=== PATIENT | male | born 1970 | race African-American/Black ===

== ENCOUNTER 2022-04-26 12:48 | Inpatient (IN) | payer OTHER ==
[2022-04-26 14:15] VITALS: BMI 28.7
[2022-04-26] MEDS ORDERED: BENZOCAINE/MENTHOL (CHLORASEPTIC ) LOZENGE MM PRN (14:43)
[2022-04-26] MEDS ORDERED: DICYCLOMINE HCL 10 MG CAPSULE PO PRN (14:43)
[2022-04-26] MEDS ORDERED: MAGNESIUM HYDROX 2400MG/30ML ORAL SUSPENSION 30 ML CUP PO PRN (14:43)
[2022-04-26] MEDS ORDERED: NALOXONE HCL (KLOXXADO) 8 MG SPRAY NS PRN (14:43)
[2022-04-26] MEDS ORDERED: NICOTINE 10 MG CARTRIDGE (INHALER) IH PRN (14:43)
[2022-04-26] MEDS ORDERED: ONDANSETRON *ODT* 4 MG TABLET SL PRN (14:43)
[2022-04-26] MEDS ORDERED: LOPERAMIDE HCL 2 MG CAPSULE PO PRN (14:43)
[2022-04-26] MEDS ORDERED: MAG HYDROX/AL HYDROX/SIMETH 30 ML UNIT-DOSE CUP PO PRN (14:43)
[2022-04-26] MEDS ORDERED: IBUPROFEN 400 MG TABLET (FP) PO PRN (14:43)
[2022-04-26] MEDS ORDERED: chlordiazePOXIDE HCL 25 MG CAPSULE PO PRN (14:43)
[2022-04-26] MEDS ORDERED: METHOCARBAMOL 500 MG TABLET PO PRN (14:43)
[2022-04-26] MEDS ORDERED: BISMUTH SUBSALICYLATE 524 MG/30 ML PO PRN (14:43)
[2022-04-26] MEDS ORDERED: IBUPROFEN 600 MG TABLET (FP) PO PRN (14:43)
[2022-04-26] MEDS ORDERED: ACETAMINOPHEN 325 MG TABLET (FP) PO PRN ×2 (14:43)
[2022-04-26] MEDS ORDERED: MAGNESIUM CITRATE 300 ML BOTTLE PO PRN (14:43)
[2022-04-26] MEDS ORDERED: ALBUTEROL SO4 HFA INHALER IH PRN (14:45)
[2022-04-26] MEDS ORDERED: NICOTINE 21 MG/24 HOURS TOPICAL PATCH ONE (15:24)
[2022-04-26] MEDS ORDERED: HYDROCHLOROTHIAZIDE 12.5 MG CAPSULE (FP) ONE (15:24)
[2022-04-26] MEDS: NICOTINE 21 MG/24 HOURS TOPICAL PATCH TD SCH (15:29)
[2022-04-26] MEDS: HYDROCHLOROTHIAZIDE 25 MG TABLET (FP) PO SCH (15:29)
[2022-04-26] MEDS: PRENATAL VITAMINS W/ FOLIC ACID TABLET (FP) PO SCH (15:35)
[2022-04-26] MEDS: chlordiazePOXIDE HCL 25 MG CAPSULE PO SCH ×2 (17:49→22:19)
[2022-04-26] MEDS: hydrOXYzine PAMOATE 25 MG CAPSULE (FP) PO SCH ×2 (17:49→22:19)
[2022-04-26] MEDS: MELATONIN 5 MG TABLETS PO SCH (22:19)
[2022-04-26] MEDS: THIAMINE HCL 100 MG TABLET (FP) PO SCH (22:19)
[2022-04-27] MEDS: chlordiazePOXIDE HCL 25 MG CAPSULE PO SCH ×4 (06:36→22:36)
[2022-04-27] MEDS: hydrOXYzine PAMOATE 25 MG CAPSULE (FP) PO SCH ×5 (06:36→22:36)
[2022-04-27] MEDS: HYDROCHLOROTHIAZIDE 25 MG TABLET (FP) PO SCH (10:25)
[2022-04-27] MEDS: PRENATAL VITAMINS W/ FOLIC ACID TABLET (FP) PO SCH (10:26)
[2022-04-27] MEDS: NICOTINE 21 MG/24 HOURS TOPICAL PATCH TD SCH (10:27)
[2022-04-27 12:26] LABS: HEMATOCRIT 38.3 % (35.4-49); HEMOGLOBIN 12.1 GM/dL (11.7-16.9); MCH 25.6 pg (25.7-33.7); MCHC 31.6 g/dl (32.0-35.9); MEAN CELL VOLUME 80.9 fl (80-96); MEAN PLT VOLUME 9.6 fl (7.5-11.1); PLATELET COUNT 249 10^3/uL (134-434); RBC 4.74 M/mm3 (4.00-5.60); RDW 14.6 % (11.9-15.9); WHITE BLOOD COUNT 5.8 K/mm3 (4.0-10.0)
[2022-04-27 12:50] LABS: ALBUMIN 3.4 g/dl (3.4-5.0); CALCIUM 8.8 mg/dL (8.5-10.1)
[2022-04-27 12:51] LABS: BLOOD UREA NITROGEN 19.2 mg/dL (7-18); CREATININE 1.1 mg/dL (0.55-1.3)
[2022-04-27 12:52] LABS: TOT PROT 6.5 g/dl (6.4-8.2)
[2022-04-27 12:59] LABS: BILIRUBIN,TOTAL 0.7 mg/dL (0.2-1)
[2022-04-27] MEDS ORDERED: LACTULOSE 20 GM/30 ML UDC (FOR ORAL USE ONLY) PO PRN (13:54)
[2022-04-27] MEDS ORDERED: POTASSIUM CHLORIDE ORAL LIQUID 20 MEQ/15 ML PO ONE (13:54)
[2022-04-27] MEDS: MELATONIN 5 MG TABLETS PO SCH (22:35)
[2022-04-27] MEDS: THIAMINE HCL 100 MG TABLET (FP) PO SCH (22:36)
[2022-04-27] MEDS: QUEtiapine FUMARATE 100 MG TABLET (FP) PO SCH (22:36)
[2022-04-28] MEDS: hydrOXYzine PAMOATE 25 MG CAPSULE (FP) PO SCH ×5 (05:49→22:21)
[2022-04-28] MEDS: chlordiazePOXIDE HCL 25 MG CAPSULE PO SCH ×4 (05:50→22:22)
[2022-04-28] MEDS: PRENATAL VITAMINS W/ FOLIC ACID TABLET (FP) PO SCH (10:39)
[2022-04-28] MEDS: HYDROCHLOROTHIAZIDE 25 MG TABLET (FP) PO SCH (10:40)
[2022-04-28] MEDS: NICOTINE 21 MG/24 HOURS TOPICAL PATCH TD SCH (10:40)
[2022-04-28] MEDS ORDERED: PATIENT'S OWN MEDICATION (NON-FORMULARY) (Lisinopril [Lisinopril] 40 MG Tablet) PO SCH (12:30)
[2022-04-28] MEDS ORDERED: LISINOPRIL 20 MG TABLET PO SCH (12:45)
[2022-04-28] MEDS: LACTULOSE 20 GM/30 ML UDC (FOR ORAL USE ONLY) PO SCH ×4 (13:32→22:22)
[2022-04-28] MEDS: APIXABAN 5 MG TABLET PO SCH ×2 (13:37→22:21)
[2022-04-28] MEDS: NIFEdipine E.R 60 MG TABLET PO SCH (13:37)
[2022-04-28] MEDS: LISINOPRIL 20 MG TABLET PO SCH (15:11)
[2022-04-28] MEDS: QUEtiapine FUMARATE 100 MG TABLET (FP) PO SCH (22:21)
[2022-04-28] MEDS: THIAMINE HCL 100 MG TABLET (FP) PO SCH (22:21)
[2022-04-28] MEDS: MELATONIN 5 MG TABLETS PO SCH (22:21)
[2022-04-29] MEDS ORDERED: chlordiazePOXIDE HCL 10 MG CAPSULE PO PRN
[2022-04-29] MEDS: hydrOXYzine PAMOATE 25 MG CAPSULE (FP) PO SCH ×5 (05:46→22:11)
[2022-04-29] MEDS: chlordiazePOXIDE HCL 10 MG CAPSULE PO SCH ×2 (05:46→10:38)
[2022-04-29] MEDS: FLUTICASONE PROP 0.05% 16 GM NASAL SPRAY NS SCH (10:36)
[2022-04-29] MEDS: PRENATAL VITAMINS W/ FOLIC ACID TABLET (FP) PO SCH (10:36)
[2022-04-29] MEDS: LACTULOSE 20 GM/30 ML UDC (FOR ORAL USE ONLY) PO SCH ×4 (10:36→22:12)
[2022-04-29] MEDS: LISINOPRIL 20 MG TABLET PO SCH (10:37)
[2022-04-29] MEDS: NIFEdipine E.R 60 MG TABLET PO SCH (10:37)
[2022-04-29] MEDS: NICOTINE 21 MG/24 HOURS TOPICAL PATCH TD SCH (10:38)
[2022-04-29] MEDS: HYDROCHLOROTHIAZIDE 25 MG TABLET (FP) PO SCH (10:38)
[2022-04-29] MEDS: APIXABAN 5 MG TABLET PO SCH ×2 (10:38→22:12)
[2022-04-29] MEDS ORDERED: LORazepam 1 MG TABLET PO PRN (11:23)
[2022-04-29] MEDS: GABAPENTIN 300 MG CAPSULE PO SCH ×3 (11:55→22:12)
[2022-04-29] MEDS: PANTOPRAZOLE 40 MG TABLET PO SCH (11:55)
[2022-04-29] MEDS: LORazepam 1 MG TABLET PO SCH ×3 (11:55→22:40)
[2022-04-29] MEDS ORDERED: POTASSIUM CHLORIDE TABS 20 MEQ TABLET.ER (FP) PO ONE (12:00)
[2022-04-29] MEDS: MELATONIN 5 MG TABLETS PO SCH (22:11)
[2022-04-29] MEDS: THIAMINE HCL 100 MG TABLET (FP) PO SCH (22:11)
[2022-04-29] MEDS: QUEtiapine FUMARATE 100 MG TABLET (FP) PO SCH (22:12)
[2022-04-30] MEDS ORDERED: chlordiazePOXIDE HCL 10 MG CAPSULE PO SCH (05:00)
[2022-04-30] MEDS: LORazepam 0.5 MG TABLET PO SCH ×2 (06:12→10:08)
[2022-04-30] MEDS: GABAPENTIN 300 MG CAPSULE PO SCH ×2 (06:13→13:34)
[2022-04-30] MEDS: hydrOXYzine PAMOATE 25 MG CAPSULE (FP) PO SCH ×3 (06:13→13:34)
[2022-04-30] MEDS: LACTULOSE 20 GM/30 ML UDC (FOR ORAL USE ONLY) PO SCH ×2 (10:02→13:34)
[2022-04-30] MEDS: PANTOPRAZOLE 40 MG TABLET PO SCH (10:03)
[2022-04-30] MEDS: LISINOPRIL 20 MG TABLET PO SCH (10:03)
[2022-04-30] MEDS: PRENATAL VITAMINS W/ FOLIC ACID TABLET (FP) PO SCH (10:03)
[2022-04-30] MEDS: FLUTICASONE PROP 0.05% 16 GM NASAL SPRAY NS SCH (10:03)
[2022-04-30] MEDS: APIXABAN 5 MG TABLET PO SCH (10:03)
[2022-04-30] MEDS: HYDROCHLOROTHIAZIDE 25 MG TABLET (FP) PO SCH (10:03)
[2022-04-30] MEDS: NICOTINE 21 MG/24 HOURS TOPICAL PATCH TD SCH (10:03)
[2022-04-30] MEDS: NIFEdipine E.R 60 MG TABLET PO SCH (10:10)
[2022-04-30 13:20] VITALS: BP 117/69; PULSE 85; RESP 16; TEMP 98.3
[2022-05-01] MEDS ORDERED: LORazepam 0.5 MG TABLET PO ONE (05:00)
[2022-05-01] MEDS ORDERED: chlordiazePOXIDE HCL 10 MG CAPSULE PO ONE (05:00)
[2022-05-02] MEDS ORDERED: LORazepam 0.5 MG TABLET PO PRN
== END 2022-04-30 13:42 | disposition home or self-care (01) | DRG 774 ==
LOC: YASAS 12:48 → Y3N 15:15
PROVIDERS: ADMIT Allergy & Immunology; ATTEND Surgery
PROC: HZ2ZZZZ Detoxification Services for Substance Abuse Treatment (ICD-10-PCS; principal; 2022-04-26)
DX: F10.230 Alcohol dependence with withdrawal, uncomplicated (principal); F14.20 Cocaine dependence, uncomplicated; F17.210 Nicotine dependence, cigarettes, uncomplicated; F20.9 Schizophrenia, unspecified; F31.9 Bipolar disorder, unspecified; E72.20 Disorder of urea cycle metabolism, unspecified; E87.6 Hypokalemia; I10 Essential (primary) hypertension; M54.50 Low back pain, unspecified; G89.29 Other chronic pain; R79.89 Other specified abnormal findings of blood chemistry; R74.01 Elevation of levels of liver transaminase levels; Z59.02 Unsheltered homelessness; Z56.0 Unemployment, unspecified
CPT/HCPCS: 36415; 71046-TC-FY; 80053; 82140; 84132; 85027; 86780; C9803-CS; U0003; U0005

== ENCOUNTER 2022-07-09 15:50 | Inpatient (IN) | payer OTHER ==
[2022-07-09 17:15] VITALS: BMI 30.8
[2022-07-09] MEDS ORDERED: ONDANSETRON *ODT* 4 MG TABLET SL PRN (17:49)
[2022-07-09] MEDS ORDERED: BENZOCAINE/MENTHOL (CHLORASEPTIC ) LOZENGE MM PRN (17:49)
[2022-07-09] MEDS ORDERED: MAG HYDROX/AL HYDROX/SIMETH 30 ML UNIT-DOSE CUP PO PRN (17:49)
[2022-07-09] MEDS ORDERED: NALOXONE HCL (KLOXXADO) 8 MG SPRAY NS PRN (17:49)
[2022-07-09] MEDS ORDERED: LOPERAMIDE HCL 2 MG CAPSULE PO PRN (17:49)
[2022-07-09] MEDS ORDERED: IBUPROFEN 400 MG TABLET (FP) PO PRN (17:49)
[2022-07-09] MEDS ORDERED: LORazepam 1 MG TABLET PO PRN (17:49)
[2022-07-09] MEDS ORDERED: MAGNESIUM HYDROX 2400MG/30ML ORAL SUSPENSION 30 ML CUP PO PRN (17:49)
[2022-07-09] MEDS ORDERED: POLYETHYLENE GLYCOL (HEALTHYLAX) 3350 17 GM PACKET PO PRN (17:49)
[2022-07-09] MEDS ORDERED: DICYCLOMINE HCL 10 MG CAPSULE PO PRN (17:49)
[2022-07-09] MEDS ORDERED: NICOTINE POLACRILEX 2 MG GUM BUC PRN (17:49)
[2022-07-09] MEDS ORDERED: hydrOXYzine PAMOATE 25 MG CAPSULE (FP) PO PRN (17:49)
[2022-07-09] MEDS ORDERED: ACETAMINOPHEN 325 MG TABLET (FP) PO PRN ×2 (17:49)
[2022-07-09] MEDS ORDERED: BISMUTH SUBSALICYLATE 524 MG/30 ML PO PRN (17:49)
[2022-07-09] MEDS ORDERED: IBUPROFEN 600 MG TABLET (FP) PO PRN (17:49)
[2022-07-09] MEDS ORDERED: LORazepam 1 MG TABLET ONE (18:53)
[2022-07-09] MEDS: THIAMINE HCL 100 MG TABLET (FP) PO SCH (22:25)
[2022-07-09] MEDS: MELATONIN 5 MG TABLETS PO SCH (22:25)
[2022-07-09] MEDS: LORazepam 2 MG TABLET PO SCH (22:25)
[2022-07-10] MEDS: LORazepam 2 MG TABLET PO SCH ×4 (05:28→22:02)
[2022-07-10] MEDS: NICOTINE 7 MG/24 HOURS TOPICAL PATCH TD SCH (10:28)
[2022-07-10] MEDS: PRENATAL VITAMINS W/ FOLIC ACID TABLET (FP) PO SCH (10:28)
[2022-07-10] MEDS ORDERED: DOCUSATE SODIUM 100 MG CAPSULE (FP) PO PRN (10:33)
[2022-07-10] MEDS ORDERED: APIXABAN 5 MG TABLET PO SCH (10:45)
[2022-07-10 11:12] LABS: HEMATOCRIT 37.1 % (35.4-49); HEMOGLOBIN 11.6 GM/dL (11.7-16.9); MCH 24.5 pg (25.7-33.7); MCHC 31.4 g/dl (32.0-35.9); MEAN PLT VOLUME 8.8 fl (7.5-11.1); PLATELET COUNT 296 10^3/uL (134-434); RBC 4.75 M/mm3 (4.00-5.60); RDW 15.3 % (11.9-15.9); WHITE BLOOD COUNT 3.9 K/mm3 (4.0-10.0)
[2022-07-10 12:16] LABS: ALBUMIN 3.5 g/dl (3.4-5.0)
[2022-07-10 12:19] LABS: CREATININE 1.3 mg/dL (0.55-1.3)
[2022-07-10 12:21] LABS: BILIRUBIN,TOTAL 0.4 mg/dL (0.2-1); TOT PROT 6.6 g/dl (6.4-8.2)
[2022-07-10] MEDS: HYDROCHLOROTHIAZIDE 25 MG TABLET (FP) PO SCH (12:46)
[2022-07-10] MEDS: NIFEdipine E.R 60 MG TABLET PO SCH (12:47)
[2022-07-10] MEDS: APIXABAN 5 MG TABLET PO SCH ×2 (14:04→22:02)
[2022-07-10] MEDS ORDERED: cloNIDine HCL 0.1 MG TABLET PO ONE (21:09)
[2022-07-10] MEDS: MELATONIN 5 MG TABLETS PO SCH (21:23)
[2022-07-10] MEDS: THIAMINE HCL 100 MG TABLET (FP) PO SCH (21:23)
[2022-07-10] MEDS ORDERED: QUEtiapine FUMARATE 100 MG TABLET (FP) PO SCH (22:00)
[2022-07-10] MEDS ORDERED: QUEtiapine FUMARATE 200 MG TABLET PO SCH (22:00)
[2022-07-11] MEDS: LORazepam 1 MG TABLET PO SCH ×4 (05:36→22:15)
[2022-07-11] MEDS: METHOCARBAMOL 500 MG TABLET PO PRN ×2 (05:40→22:16)
[2022-07-11] MEDS: HYDROCHLOROTHIAZIDE 25 MG TABLET (FP) PO SCH (09:23)
[2022-07-11] MEDS: LISINOPRIL 20 MG TABLET PO SCH (09:23)
[2022-07-11] MEDS: LABETALOL HCL 100 MG TABLET (FP) PO SCH ×2 (09:23→22:15)
[2022-07-11] MEDS: NIFEdipine E.R 60 MG TABLET PO SCH (09:23)
[2022-07-11] MEDS: NICOTINE 7 MG/24 HOURS TOPICAL PATCH TD SCH (09:25)
[2022-07-11] MEDS: PRENATAL VITAMINS W/ FOLIC ACID TABLET (FP) PO SCH (09:25)
[2022-07-11] MEDS ORDERED: SERTRALINE HCL 50 MG TABLET (FP) PO SCH (10:00)
[2022-07-11] MEDS ORDERED: QUEtiapine FUMARATE 200 MG TABLET PO SCH (22:00)
[2022-07-11] MEDS: THIAMINE HCL 100 MG TABLET (FP) PO SCH (22:15)
[2022-07-11] MEDS: MELATONIN 5 MG TABLETS PO SCH (22:15)
[2022-07-12] MEDS ORDERED: LORazepam 0.5 MG TABLET PO PRN
[2022-07-12] MEDS: LORazepam 0.5 MG TABLET PO SCH ×2 (05:40→10:07)
[2022-07-12 06:10] VITALS: TEMP 96.9
[2022-07-12 09:01] VITALS: BP 136/80; PULSE 71; RESP 18
[2022-07-12] MEDS ORDERED: SERTRALINE HCL 50 MG TABLET (FP) PO SCH (10:00)
[2022-07-12] MEDS: LABETALOL HCL 100 MG TABLET (FP) PO SCH (10:05)
[2022-07-12] MEDS: NICOTINE 7 MG/24 HOURS TOPICAL PATCH TD SCH (10:05)
[2022-07-12] MEDS: PRENATAL VITAMINS W/ FOLIC ACID TABLET (FP) PO SCH (10:05)
[2022-07-12] MEDS: HYDROCHLOROTHIAZIDE 25 MG TABLET (FP) PO SCH (10:05)
[2022-07-12] MEDS: LISINOPRIL 20 MG TABLET PO SCH (10:05)
[2022-07-12] MEDS: NIFEdipine E.R 60 MG TABLET PO SCH (10:06)
[2022-07-13] MEDS ORDERED: LORazepam 0.5 MG TABLET PO ONE (05:00)
== END 2022-07-12 13:18 | disposition home or self-care (01) | DRG 775 ==
LOC: YASAS 15:50 → Y3N 18:48
PROVIDERS: ADMIT Allergy & Immunology; ATTEND Surgery
PROC: HZ2ZZZZ Detoxification Services for Substance Abuse Treatment (ICD-10-PCS; principal; 2022-07-09)
DX: F10.230 Alcohol dependence with withdrawal, uncomplicated (principal); F17.210 Nicotine dependence, cigarettes, uncomplicated; F19.24 Other psychoactive substance dependence with psychoactive substance-induced mood disorder; I10 Essential (primary) hypertension; G47.00 Insomnia, unspecified; Z86.59 Personal history of other mental and behavioral disorders; Z91.013 Allergy to seafood; Z98.84 Bariatric surgery status; Z56.0 Unemployment, unspecified; Z59.00 Homelessness unspecified
CPT/HCPCS: 36415; 80053; 85027; 86780; 87811; C9803-CS; U0003; U0005

== ENCOUNTER 2022-09-04 18:51 | Inpatient (IN) | payer OTHER ==
[2022-09-04 19:59] VITALS: BMI 33.0
[2022-09-05] MEDS ORDERED: chlordiazePOXIDE HCL 25 MG CAPSULE PO PRN (01:04)
[2022-09-05] MEDS ORDERED: IBUPROFEN 600 MG TABLET (FP) PO PRN (01:04)
[2022-09-05] MEDS ORDERED: LOPERAMIDE HCL 2 MG CAPSULE PO PRN (01:04)
[2022-09-05] MEDS ORDERED: ACETAMINOPHEN 325 MG TABLET (FP) PO PRN ×2 (01:04)
[2022-09-05] MEDS ORDERED: ONDANSETRON *ODT* 4 MG TABLET SL PRN (01:04)
[2022-09-05] MEDS ORDERED: MAGNESIUM HYDROX 2400MG/30ML ORAL SUSPENSION 30 ML CUP PO PRN (01:04)
[2022-09-05] MEDS ORDERED: DICYCLOMINE HCL 10 MG CAPSULE PO PRN (01:04)
[2022-09-05] MEDS ORDERED: BISMUTH SUBSALICYLATE 524 MG/30 ML PO PRN (01:04)
[2022-09-05] MEDS ORDERED: IBUPROFEN 400 MG TABLET (FP) PO PRN (01:04)
[2022-09-05] MEDS ORDERED: BENZOCAINE/MENTHOL (CHLORASEPTIC ) LOZENGE MM PRN (01:04)
[2022-09-05] MEDS ORDERED: MAG HYDROX/AL HYDROX/SIMETH 30 ML UNIT-DOSE CUP PO PRN (01:04)
[2022-09-05] MEDS ORDERED: POLYETHYLENE GLYCOL (HEALTHYLAX) 3350 17 GM PACKET PO PRN (01:04)
[2022-09-05] MEDS ORDERED: NICOTINE 10 MG CARTRIDGE (INHALER) IH PRN (01:04)
[2022-09-05] MEDS ORDERED: NALOXONE HCL (KLOXXADO) 8 MG SPRAY NS PRN (01:04)
[2022-09-05] MEDS ORDERED: cloNIDine HCL 0.1 MG TABLET PO ONE (01:09)
[2022-09-05] MEDS ORDERED: IBUPROFEN 400 MG TABLET (FP) PO ONE (01:35)
[2022-09-05] MEDS ORDERED: cloNIDine HCL 0.1 MG TABLET ONE (01:35)
[2022-09-05] MEDS ORDERED: MELATONIN 5 MG TABLETS ONE (01:42)
[2022-09-05] MEDS ORDERED: chlordiazePOXIDE HCL 25 MG CAPSULE PO ONE (01:57)
[2022-09-05] MEDS: chlordiazePOXIDE HCL 25 MG CAPSULE PO SCH ×4 (06:08→22:36)
[2022-09-05] MEDS ORDERED: NICOTINE 14 MG/24 HOURS TOPICAL PATCH TD ONE (09:58)
[2022-09-05] MEDS ORDERED: HYDROCHLOROTHIAZIDE 12.5 MG CAPSULE (FP) ONE (09:59)
[2022-09-05] MEDS ORDERED: LISINOPRIL 10 MG TABLET ONE (09:59)
[2022-09-05] MEDS ORDERED: PRENATAL VITAMINS W/ FOLIC ACID TABLET (FP) PO ONE (09:59)
[2022-09-05] MEDS ORDERED: ERGOCALCIFEROL (VIT D2) 50,000 UNIT (1.25 MG) CAPSULE PO SCH (10:00)
[2022-09-05] MEDS ORDERED: NIFEdipine E.R 60 MG TABLET PO SCH (10:00)
[2022-09-05] MEDS: NICOTINE 14 MG/24 HOURS TOPICAL PATCH TD SCH (10:07)
[2022-09-05] MEDS: HYDROCHLOROTHIAZIDE 25 MG TABLET (FP) PO SCH (10:07)
[2022-09-05] MEDS: PRENATAL VITAMINS W/ FOLIC ACID TABLET (FP) PO SCH (10:07)
[2022-09-05] MEDS: LISINOPRIL 20 MG TABLET PO SCH (10:08)
[2022-09-05] MEDS: PANTOPRAZOLE 40 MG TABLET PO SCH (13:48)
[2022-09-05] MEDS ORDERED: chlordiazePOXIDE HCL 25 MG CAPSULE ONE (13:50)
[2022-09-05] MEDS: GABAPENTIN 300 MG CAPSULE PO SCH ×2 (14:14→22:34)
[2022-09-05] MEDS ORDERED: PANTOPRAZOLE 40 MG TABLET PO ONE (17:21)
[2022-09-05] MEDS: NIFEdipine E.R. 30 MG TABLET PO SCH (18:39)
[2022-09-05] MEDS: METOPROLOL TARTRATE 50 MG TABLET (FP) PO SCH (21:15)
[2022-09-05] MEDS: MELATONIN 5 MG TABLETS PO SCH (22:34)
[2022-09-05] MEDS: QUEtiapine FUMARATE 200 MG TABLET PO SCH (22:34)
[2022-09-05] MEDS: THIAMINE HCL 100 MG TABLET (FP) PO SCH (22:34)
[2022-09-05] MEDS: METHOCARBAMOL 500 MG TABLET PO PRN (22:36)
[2022-09-05] MEDS ORDERED: METOPROLOL TARTRATE 25 MG TABLET (FP) PO ONE (22:55)
[2022-09-06] MEDS: chlordiazePOXIDE HCL 25 MG CAPSULE PO SCH ×4 (06:08→22:20)
[2022-09-06] MEDS: GABAPENTIN 300 MG CAPSULE PO SCH ×3 (06:08→22:19)
[2022-09-06] MEDS: METOPROLOL TARTRATE 50 MG TABLET (FP) PO SCH ×2 (10:37→22:19)
[2022-09-06] MEDS: PRENATAL VITAMINS W/ FOLIC ACID TABLET (FP) PO SCH (10:37)
[2022-09-06] MEDS: HYDROCHLOROTHIAZIDE 25 MG TABLET (FP) PO SCH (10:38)
[2022-09-06] MEDS: LISINOPRIL 20 MG TABLET PO SCH (10:38)
[2022-09-06] MEDS: SERTRALINE HCL 50 MG TABLET (FP) PO SCH (10:38)
[2022-09-06] MEDS: PANTOPRAZOLE 40 MG TABLET PO SCH (10:38)
[2022-09-06] MEDS: NIFEdipine E.R. 30 MG TABLET PO SCH (10:38)
[2022-09-06] MEDS: NICOTINE 14 MG/24 HOURS TOPICAL PATCH TD SCH (10:39)
[2022-09-06] MEDS: METHOCARBAMOL 500 MG TABLET PO PRN (10:44)
[2022-09-06 13:50] LABS: HEMATOCRIT 32.5 % (35.4-49); HEMOGLOBIN 10.9 GM/dL (11.7-16.9); MCH 26.7 pg (25.7-33.7); MCHC 33.4 g/dl (32.0-35.9); MEAN CELL VOLUME 79.9 fl (80-96); MEAN PLT VOLUME 8.3 fl (7.5-11.1); PLATELET COUNT 249 10^3/uL (134-434); RBC 4.07 M/mm3 (4.00-5.60); RDW 18.4 % (11.9-15.9); WHITE BLOOD COUNT 4.2 K/mm3 (4.0-10.0)
[2022-09-06 14:47] LABS: CALCIUM 8.7 mg/dL (8.5-10.1)
[2022-09-06 14:48] LABS: ALBUMIN 3.3 g/dl (3.4-5.0)
[2022-09-06 14:50] LABS: CREATININE 1.1 mg/dL (0.55-1.3)
[2022-09-06 14:52] LABS: BILIRUBIN,TOTAL 0.2 mg/dL (0.2-1); TOT PROT 6.4 g/dl (6.4-8.2)
[2022-09-06] MEDS: QUEtiapine FUMARATE 200 MG TABLET PO SCH (22:19)
[2022-09-06] MEDS: MELATONIN 5 MG TABLETS PO SCH (22:20)
[2022-09-06] MEDS: THIAMINE HCL 100 MG TABLET (FP) PO SCH (22:20)
[2022-09-07] MEDS ORDERED: chlordiazePOXIDE HCL 10 MG CAPSULE PO PRN
[2022-09-07] MEDS: GABAPENTIN 300 MG CAPSULE PO SCH ×3 (05:52→21:59)
[2022-09-07] MEDS: chlordiazePOXIDE HCL 10 MG CAPSULE PO SCH ×4 (05:52→21:59)
[2022-09-07] MEDS: PRENATAL VITAMINS W/ FOLIC ACID TABLET (FP) PO SCH (10:23)
[2022-09-07] MEDS: METOPROLOL TARTRATE 50 MG TABLET (FP) PO SCH ×2 (10:23→21:58)
[2022-09-07] MEDS: SERTRALINE HCL 50 MG TABLET (FP) PO SCH (10:23)
[2022-09-07] MEDS: NIFEdipine E.R. 30 MG TABLET PO SCH (10:23)
[2022-09-07] MEDS: HYDROCHLOROTHIAZIDE 25 MG TABLET (FP) PO SCH (10:23)
[2022-09-07] MEDS: PANTOPRAZOLE 40 MG TABLET PO SCH (10:24)
[2022-09-07] MEDS: LISINOPRIL 20 MG TABLET PO SCH (10:24)
[2022-09-07] MEDS: NICOTINE 14 MG/24 HOURS TOPICAL PATCH TD SCH (10:24)
[2022-09-07] MEDS: VITAMINS A AND D TOPICAL OINTMENT 60 GM TUBE TP SCH ×2 (17:36→23:21)
[2022-09-07] MEDS: QUEtiapine FUMARATE 200 MG TABLET PO SCH (21:58)
[2022-09-07] MEDS: THIAMINE HCL 100 MG TABLET (FP) PO SCH (21:59)
[2022-09-07] MEDS: MELATONIN 5 MG TABLETS PO SCH (21:59)
[2022-09-07] MEDS: METHOCARBAMOL 500 MG TABLET PO PRN (22:01)
[2022-09-08] MEDS: VITAMINS A AND D TOPICAL OINTMENT 60 GM TUBE TP SCH ×4 (06:23→23:24)
[2022-09-08] MEDS: chlordiazePOXIDE HCL 10 MG CAPSULE PO SCH ×2 (06:23→17:07)
[2022-09-08] MEDS: GABAPENTIN 300 MG CAPSULE PO SCH ×3 (06:23→21:08)
[2022-09-08] MEDS: PRENATAL VITAMINS W/ FOLIC ACID TABLET (FP) PO SCH (10:36)
[2022-09-08] MEDS: NICOTINE 14 MG/24 HOURS TOPICAL PATCH TD SCH (10:36)
[2022-09-08] MEDS: SERTRALINE HCL 50 MG TABLET (FP) PO SCH (10:37)
[2022-09-08] MEDS: LISINOPRIL 20 MG TABLET PO SCH (10:38)
[2022-09-08] MEDS: METOPROLOL TARTRATE 50 MG TABLET (FP) PO SCH ×2 (10:39→21:08)
[2022-09-08] MEDS: PANTOPRAZOLE 40 MG TABLET PO SCH (10:39)
[2022-09-08] MEDS: NIFEdipine E.R. 30 MG TABLET PO SCH (10:39)
[2022-09-08] MEDS: METHOCARBAMOL 500 MG TABLET PO PRN ×2 (10:43→17:06)
[2022-09-08] MEDS: HYDROCHLOROTHIAZIDE 25 MG TABLET (FP) PO SCH (10:47)
[2022-09-08 19:44] VITALS: RESP 18
[2022-09-08] MEDS: MELATONIN 5 MG TABLETS PO SCH (21:08)
[2022-09-08] MEDS: QUEtiapine FUMARATE 200 MG TABLET PO SCH (21:08)
[2022-09-08] MEDS: THIAMINE HCL 100 MG TABLET (FP) PO SCH (21:08)
[2022-09-09] MEDS ORDERED: chlordiazePOXIDE HCL 10 MG CAPSULE PO ONE (05:00)
[2022-09-09] MEDS: GABAPENTIN 300 MG CAPSULE PO SCH (06:06)
[2022-09-09] MEDS: VITAMINS A AND D TOPICAL OINTMENT 60 GM TUBE TP SCH (06:31)
[2022-09-09 07:11] VITALS: TEMP 97.3
[2022-09-09 10:12] VITALS: BP 163/93; PULSE 87
[2022-09-09] MEDS: HYDROCHLOROTHIAZIDE 25 MG TABLET (FP) PO SCH (10:35)
[2022-09-09] MEDS: SERTRALINE HCL 50 MG TABLET (FP) PO SCH (10:35)
[2022-09-09] MEDS: NIFEdipine E.R. 30 MG TABLET PO SCH (10:35)
[2022-09-09] MEDS: PANTOPRAZOLE 40 MG TABLET PO SCH (10:35)
[2022-09-09] MEDS: METOPROLOL TARTRATE 50 MG TABLET (FP) PO SCH (10:35)
[2022-09-09] MEDS: PRENATAL VITAMINS W/ FOLIC ACID TABLET (FP) PO SCH (10:35)
[2022-09-09] MEDS: LISINOPRIL 20 MG TABLET PO SCH (10:36)
[2022-09-09] MEDS: NICOTINE 14 MG/24 HOURS TOPICAL PATCH TD SCH (10:37)
== END 2022-09-09 11:14 | disposition other institution (70) | DRG 775 ==
LOC: YASAS 18:51 → Y3N 09-05 13:54
PROVIDERS: ADMIT Allergy & Immunology; ATTEND Surgery
PROC: HZ2ZZZZ Detoxification Services for Substance Abuse Treatment (ICD-10-PCS; principal; 2022-09-05)
DX: F10.230 Alcohol dependence with withdrawal, uncomplicated (principal); F12.20 Cannabis dependence, uncomplicated; F17.210 Nicotine dependence, cigarettes, uncomplicated; F19.24 Other psychoactive substance dependence with psychoactive substance-induced mood disorder; F20.9 Schizophrenia, unspecified; F41.9 Anxiety disorder, unspecified; F32.A Depression, unspecified; M17.0 Bilateral primary osteoarthritis of knee; R76.11 Nonspecific reaction to tuberculin skin test without active tuberculosis; E66.9 Obesity, unspecified; Z68.33 Body mass index [BMI] 33.0-33.9, adult; Z59.00 Homelessness unspecified; Z56.0 Unemployment, unspecified
CPT/HCPCS: 36415; 80053; 82962; 85027; 86780; 93005; 93010; C9803-CS; U0003; U0005

== ENCOUNTER 2022-09-09 11:22 | Inpatient (IN) | payer OTHER ==
[2022-09-09] MEDS ORDERED: guaiFENesin 200 MG/10 ML 10 ML UNIT-DOSE CUPS PO PRN (12:51)
[2022-09-09] MEDS ORDERED: BENZOCAINE/MENTHOL (CHLORASEPTIC ) LOZENGE MM PRN (12:51)
[2022-09-09] MEDS ORDERED: MAGNESIUM HYDROX 2400MG/30ML ORAL SUSPENSION 30 ML CUP PO PRN (12:51)
[2022-09-09] MEDS ORDERED: LOPERAMIDE HCL 2 MG CAPSULE PO PRN (12:51)
[2022-09-09] MEDS ORDERED: POLYETHYLENE GLYCOL (HEALTHYLAX) 3350 17 GM PACKET PO PRN (12:51)
[2022-09-09] MEDS ORDERED: NICOTINE 10 MG CARTRIDGE (INHALER) IH PRN (12:51)
[2022-09-09] MEDS ORDERED: MAG HYDROX/AL HYDROX/SIMETH 30 ML UNIT-DOSE CUP PO PRN (12:51)
[2022-09-09] MEDS ORDERED: DOCUSATE SODIUM 100 MG CAPSULE (FP) PO PRN (12:54)
[2022-09-09] MEDS: GABAPENTIN 300 MG CAPSULE PO SCH ×2 (14:40→21:16)
[2022-09-09] MEDS: QUEtiapine FUMARATE 200 MG TABLET PO SCH (21:16)
[2022-09-09] MEDS: THIAMINE HCL 100 MG TABLET (FP) PO SCH (21:16)
[2022-09-09] MEDS ORDERED: MELATONIN 5 MG TABLETS PO SCH (22:00)
[2022-09-10] MEDS: GABAPENTIN 300 MG CAPSULE PO SCH ×3 (06:49→21:16)
[2022-09-10] MEDS ORDERED: SERTRALINE HCL 50 MG TABLET (FP) PO SCH ×2 (10:00)
[2022-09-10] MEDS: PRENATAL VITAMINS W/ FOLIC ACID TABLET (FP) PO SCH (10:20)
[2022-09-10] MEDS: HYDROCHLOROTHIAZIDE 25 MG TABLET (FP) PO SCH (10:21)
[2022-09-10] MEDS: NIFEdipine E.R. 30 MG TABLET PO SCH (10:21)
[2022-09-10] MEDS: metoPROLOL SUCCINATE 25 MG TAB.SR.24H (FP) PO SCH (10:21)
[2022-09-10] MEDS: NICOTINE 14 MG/24 HOURS TOPICAL PATCH TD SCH (10:21)
[2022-09-10] MEDS: THIAMINE HCL 100 MG TABLET (FP) PO SCH (21:15)
[2022-09-10] MEDS: QUEtiapine FUMARATE 200 MG TABLET PO SCH (21:15)
[2022-09-10] MEDS: hydrOXYzine PAMOATE 25 MG CAPSULE (FP) PO PRN (21:16)
[2022-09-10] MEDS: P-EPHED 60MG/TRIPROLIDI 2.5MG TABLET PO PRN (21:18)
[2022-09-11] MEDS: GABAPENTIN 300 MG CAPSULE PO SCH (06:10)
[2022-09-11] MEDS ORDERED: SERTRALINE 100 MG PO SCH (10:00)
[2022-09-11] MEDS: metoPROLOL SUCCINATE 25 MG TAB.SR.24H (FP) PO SCH (10:22)
[2022-09-11] MEDS: HYDROCHLOROTHIAZIDE 25 MG TABLET (FP) PO SCH (10:22)
[2022-09-11] MEDS: NICOTINE 14 MG/24 HOURS TOPICAL PATCH TD SCH (10:22)
[2022-09-11] MEDS: PRENATAL VITAMINS W/ FOLIC ACID TABLET (FP) PO SCH (10:22)
[2022-09-11] MEDS: NIFEdipine E.R. 30 MG TABLET PO SCH (10:23)
[2022-09-11] MEDS: SERTRALINE 100 MG PO SCH (11:08)
[2022-09-11] MEDS: GABAPENTIN 300 MG PO SCH ×2 (13:55→21:31)
[2022-09-11] MEDS: FLUTICASONE PROP 0.05% 16 GM NASAL SPRAY NS SCH (13:56)
[2022-09-11] MEDS: THIAMINE HCL 100 MG TABLET (FP) PO SCH (21:30)
[2022-09-11] MEDS: QUEtiapine FUMARATE 200 MG TABLET PO SCH (21:31)
[2022-09-11] MEDS: hydrOXYzine PAMOATE 25 MG CAPSULE (FP) PO PRN (21:31)
[2022-09-12] MEDS: GABAPENTIN 300 MG PO SCH ×2 (06:00→13:40)
[2022-09-12] MEDS: PRENATAL VITAMINS W/ FOLIC ACID TABLET (FP) PO SCH (10:07)
[2022-09-12] MEDS: metoPROLOL SUCCINATE 25 MG TAB.SR.24H (FP) PO SCH (10:07)
[2022-09-12] MEDS: HYDROCHLOROTHIAZIDE 25 MG TABLET (FP) PO SCH (10:07)
[2022-09-12] MEDS: FLUTICASONE PROP 0.05% 16 GM NASAL SPRAY NS SCH (10:07)
[2022-09-12] MEDS: NIFEdipine E.R. 30 MG TABLET PO SCH (10:07)
[2022-09-12] MEDS: NICOTINE 14 MG/24 HOURS TOPICAL PATCH TD SCH (10:08)
[2022-09-12] MEDS: SERTRALINE 100 MG PO SCH (10:08)
[2022-09-12] MEDS: METHOCARBAMOL 500 MG TABLET PO PRN ×2 (10:10→21:23)
[2022-09-12] MEDS ORDERED: LIDOCAINE 5% TOPICAL PATCH TP SCH (15:45)
[2022-09-12] MEDS: FERROUS SO4 325 MG TABLET (FP) PO SCH (16:42)
[2022-09-12] MEDS: LIDOCAINE 5% TOPICAL PATCH TP SCH (16:43)
[2022-09-12] MEDS: QUEtiapine FUMARATE 200 MG TABLET PO SCH (21:23)
[2022-09-12] MEDS: THIAMINE HCL 100 MG TABLET (FP) PO SCH (21:24)
[2022-09-12] MEDS: GABAPENTIN 300 MG CAPSULE PO SCH (21:24)
[2022-09-12] MEDS: hydrOXYzine PAMOATE 25 MG CAPSULE (FP) PO PRN (21:25)
[2022-09-12] MEDS: METHYL SALICYLATE/MENTHOL OINT 30 GM TUBE TP SCH (21:25)
[2022-09-12] MEDS: LIDOCAINE PATCH REMOVAL MC SCH ×2 (21:25)
[2022-09-13] MEDS: metoPROLOL SUCCINATE 25 MG TAB.SR.24H (FP) PO SCH (09:10)
[2022-09-13] MEDS: NIFEdipine E.R. 30 MG TABLET PO SCH (09:10)
[2022-09-13] MEDS: GABAPENTIN 300 MG CAPSULE PO SCH ×3 (09:10→21:53)
[2022-09-13] MEDS: PANTOPRAZOLE 40 MG TABLET PO SCH (09:10)
[2022-09-13] MEDS: HYDROCHLOROTHIAZIDE 25 MG TABLET (FP) PO SCH (09:10)
[2022-09-13] MEDS: FERROUS SO4 325 MG TABLET (FP) PO SCH ×3 (09:11→21:53)
[2022-09-13] MEDS: SERTRALINE 100 MG PO SCH (09:12)
[2022-09-13] MEDS: FLUTICASONE PROP 0.05% 16 GM NASAL SPRAY NS SCH (09:12)
[2022-09-13] MEDS: P-EPHED 60MG/TRIPROLIDI 2.5MG TABLET PO PRN ×2 (09:13→16:46)
[2022-09-13] MEDS: NICOTINE 14 MG/24 HOURS TOPICAL PATCH TD SCH (09:15)
[2022-09-13] MEDS: LIDOCAINE 5% TOPICAL PATCH TP SCH (09:15)
[2022-09-13] MEDS: PRENATAL VITAMINS W/ FOLIC ACID TABLET (FP) PO SCH (10:00)
[2022-09-13] MEDS: THIAMINE HCL 100 MG TABLET (FP) PO SCH (21:53)
[2022-09-13] MEDS: QUEtiapine FUMARATE 200 MG TABLET PO SCH (21:53)
[2022-09-13] MEDS: METHYL SALICYLATE/MENTHOL OINT 30 GM TUBE TP SCH (21:54)
[2022-09-13] MEDS: LIDOCAINE PATCH REMOVAL MC SCH ×2 (21:54→21:55)
[2022-09-13] MEDS: METHOCARBAMOL 500 MG TABLET PO PRN (21:54)
[2022-09-14] MEDS: PANTOPRAZOLE 40 MG TABLET PO SCH (09:57)
[2022-09-14] MEDS: PRENATAL VITAMINS W/ FOLIC ACID TABLET (FP) PO SCH (09:57)
[2022-09-14] MEDS: HYDROCHLOROTHIAZIDE 25 MG TABLET (FP) PO SCH (09:57)
[2022-09-14] MEDS: GABAPENTIN 300 MG CAPSULE PO SCH ×3 (09:57→21:22)
[2022-09-14] MEDS: LISINOPRIL 20 MG TABLET PO SCH (09:57)
[2022-09-14] MEDS: METHOCARBAMOL 500 MG TABLET PO PRN (09:58)
[2022-09-14] MEDS: metoPROLOL SUCCINATE 25 MG TAB.SR.24H (FP) PO SCH (09:58)
[2022-09-14] MEDS: SERTRALINE 100 MG PO SCH (09:59)
[2022-09-14] MEDS: FLUTICASONE PROP 0.05% 16 GM NASAL SPRAY NS SCH (10:00)
[2022-09-14] MEDS: FERROUS SO4 325 MG TABLET (FP) PO SCH ×2 (10:00→21:22)
[2022-09-14] MEDS: NICOTINE 14 MG/24 HOURS TOPICAL PATCH TD SCH (10:00)
[2022-09-14] MEDS: LIDOCAINE 5% TOPICAL PATCH TP SCH (10:01)
[2022-09-14] MEDS: NIFEdipine E.R 60 MG TABLET PO SCH (10:02)
[2022-09-14] MEDS: P-EPHED 60MG/TRIPROLIDI 2.5MG TABLET PO PRN (15:00)
[2022-09-14] MEDS: THIAMINE HCL 100 MG TABLET (FP) PO SCH (21:22)
[2022-09-14] MEDS: LIDOCAINE PATCH REMOVAL MC SCH ×2 (21:23)
[2022-09-14] MEDS: METHYL SALICYLATE/MENTHOL OINT 30 GM TUBE TP SCH (21:23)
[2022-09-14] MEDS: QUEtiapine FUMARATE 200 MG TABLET PO SCH (22:35)
[2022-09-15] MEDS: FLUTICASONE PROP 0.05% 16 GM NASAL SPRAY NS SCH (10:01)
[2022-09-15] MEDS: LISINOPRIL 20 MG TABLET PO SCH (10:01)
[2022-09-15] MEDS: PRENATAL VITAMINS W/ FOLIC ACID TABLET (FP) PO SCH (10:01)
[2022-09-15] MEDS: GABAPENTIN 300 MG CAPSULE PO SCH ×3 (10:01→21:24)
[2022-09-15] MEDS: FERROUS SO4 325 MG TABLET (FP) PO SCH ×2 (10:02→21:24)
[2022-09-15] MEDS: NIFEdipine E.R 60 MG TABLET PO SCH (10:02)
[2022-09-15] MEDS: metoPROLOL SUCCINATE 25 MG TAB.SR.24H (FP) PO SCH (10:02)
[2022-09-15] MEDS: NICOTINE 14 MG/24 HOURS TOPICAL PATCH TD SCH (10:02)
[2022-09-15] MEDS: HYDROCHLOROTHIAZIDE 25 MG TABLET (FP) PO SCH (10:02)
[2022-09-15] MEDS: PANTOPRAZOLE 40 MG TABLET PO SCH (10:02)
[2022-09-15] MEDS: LIDOCAINE 5% TOPICAL PATCH TP SCH (10:05)
[2022-09-15] MEDS ORDERED: SERTRALINE HCL 50 MG TABLET (FP) PO SCH (10:11)
[2022-09-15] MEDS: SERTRALINE HCL 50 MG TABLET (FP) PO SCH (10:43)
[2022-09-15] MEDS: METHOCARBAMOL 500 MG TABLET PO PRN (10:44)
[2022-09-15] MEDS: SERTRALINE 100 MG PO SCH (10:57)
[2022-09-15] MEDS: THIAMINE HCL 100 MG TABLET (FP) PO SCH (21:24)
[2022-09-15] MEDS: METHYL SALICYLATE/MENTHOL OINT 30 GM TUBE TP SCH (21:25)
[2022-09-15] MEDS: LIDOCAINE PATCH REMOVAL MC SCH ×2 (21:25)
[2022-09-15] MEDS: SUVOREXANT 10 MG TABLET PO PRN (22:04)
[2022-09-15] MEDS: QUEtiapine FUMARATE 200 MG TABLET PO SCH (22:04)
[2022-09-16] MEDS: PRENATAL VITAMINS W/ FOLIC ACID TABLET (FP) PO SCH (09:47)
[2022-09-16] MEDS: NICOTINE 14 MG/24 HOURS TOPICAL PATCH TD SCH (09:47)
[2022-09-16] MEDS: FLUTICASONE PROP 0.05% 16 GM NASAL SPRAY NS SCH (09:47)
[2022-09-16] MEDS: metoPROLOL SUCCINATE 25 MG TAB.SR.24H (FP) PO SCH (09:47)
[2022-09-16] MEDS: NIFEdipine E.R 60 MG TABLET PO SCH (09:48)
[2022-09-16] MEDS: HYDROCHLOROTHIAZIDE 25 MG TABLET (FP) PO SCH (09:48)
[2022-09-16] MEDS: LISINOPRIL 20 MG TABLET PO SCH (09:48)
[2022-09-16] MEDS: LIDOCAINE 5% TOPICAL PATCH TP SCH (09:48)
[2022-09-16] MEDS: SERTRALINE HCL 50 MG TABLET (FP) PO SCH (09:48)
[2022-09-16] MEDS: GABAPENTIN 300 MG CAPSULE PO SCH ×3 (09:48→21:14)
[2022-09-16] MEDS: FERROUS SO4 325 MG TABLET (FP) PO SCH ×2 (09:48→21:14)
[2022-09-16] MEDS: PANTOPRAZOLE 40 MG TABLET PO SCH (09:48)
[2022-09-16] MEDS: METHOCARBAMOL 500 MG TABLET PO PRN (09:49)
[2022-09-16] MEDS: THIAMINE HCL 100 MG TABLET (FP) PO SCH (21:14)
[2022-09-16] MEDS: METHYL SALICYLATE/MENTHOL OINT 30 GM TUBE TP SCH (21:15)
[2022-09-16] MEDS: LIDOCAINE PATCH REMOVAL MC SCH ×2 (21:15)
[2022-09-16] MEDS: QUEtiapine FUMARATE 200 MG TABLET PO SCH (22:03)
[2022-09-16] MEDS: SUVOREXANT 10 MG TABLET PO PRN (22:03)
[2022-09-17] MEDS: PANTOPRAZOLE 40 MG TABLET PO SCH (09:51)
[2022-09-17] MEDS: NIFEdipine E.R 60 MG TABLET PO SCH (09:51)
[2022-09-17] MEDS: HYDROCHLOROTHIAZIDE 25 MG TABLET (FP) PO SCH (09:51)
[2022-09-17] MEDS: PRENATAL VITAMINS W/ FOLIC ACID TABLET (FP) PO SCH (09:51)
[2022-09-17] MEDS: LISINOPRIL 20 MG TABLET PO SCH (09:52)
[2022-09-17] MEDS: GABAPENTIN 300 MG CAPSULE PO SCH ×3 (09:52→21:22)
[2022-09-17] MEDS: metoPROLOL SUCCINATE 25 MG TAB.SR.24H (FP) PO SCH (09:52)
[2022-09-17] MEDS: FERROUS SO4 325 MG TABLET (FP) PO SCH ×2 (09:52→21:22)
[2022-09-17] MEDS: SERTRALINE HCL 50 MG TABLET (FP) PO SCH (09:52)
[2022-09-17] MEDS: FLUTICASONE PROP 0.05% 16 GM NASAL SPRAY NS SCH (09:52)
[2022-09-17] MEDS: LIDOCAINE 5% TOPICAL PATCH TP SCH (09:53)
[2022-09-17] MEDS: NICOTINE 14 MG/24 HOURS TOPICAL PATCH TD SCH (09:53)
[2022-09-17] MEDS: METHOCARBAMOL 500 MG TABLET PO PRN (13:57)
[2022-09-17] MEDS: THIAMINE HCL 100 MG TABLET (FP) PO SCH (21:22)
[2022-09-17] MEDS: METHYL SALICYLATE/MENTHOL OINT 30 GM TUBE TP SCH (21:23)
[2022-09-17] MEDS: LIDOCAINE PATCH REMOVAL MC SCH ×2 (21:23)
[2022-09-17] MEDS: QUEtiapine FUMARATE 200 MG TABLET PO SCH (22:05)
[2022-09-17] MEDS: SUVOREXANT 10 MG TABLET PO PRN (22:05)
[2022-09-18] MEDS: PANTOPRAZOLE 40 MG TABLET PO SCH (10:03)
[2022-09-18] MEDS: NIFEdipine E.R 60 MG TABLET PO SCH (10:03)
[2022-09-18] MEDS: NICOTINE 14 MG/24 HOURS TOPICAL PATCH TD SCH (10:03)
[2022-09-18] MEDS: HYDROCHLOROTHIAZIDE 25 MG TABLET (FP) PO SCH (10:03)
[2022-09-18] MEDS: GABAPENTIN 300 MG CAPSULE PO SCH ×3 (10:03→22:01)
[2022-09-18] MEDS: FERROUS SO4 325 MG TABLET (FP) PO SCH ×2 (10:03→22:01)
[2022-09-18] MEDS: FLUTICASONE PROP 0.05% 16 GM NASAL SPRAY NS SCH (10:03)
[2022-09-18] MEDS: metoPROLOL SUCCINATE 25 MG TAB.SR.24H (FP) PO SCH (10:03)
[2022-09-18] MEDS: SERTRALINE HCL 50 MG TABLET (FP) PO SCH (10:03)
[2022-09-18] MEDS: LISINOPRIL 20 MG TABLET PO SCH (10:03)
[2022-09-18] MEDS: PRENATAL VITAMINS W/ FOLIC ACID TABLET (FP) PO SCH (10:03)
[2022-09-18] MEDS: LIDOCAINE 5% TOPICAL PATCH TP SCH (10:03)
[2022-09-18] MEDS: METHOCARBAMOL 500 MG TABLET PO PRN ×2 (10:04→22:02)
[2022-09-18] MEDS: QUEtiapine FUMARATE 200 MG TABLET PO SCH (22:01)
[2022-09-18] MEDS: THIAMINE HCL 100 MG TABLET (FP) PO SCH (22:01)
[2022-09-18] MEDS: LIDOCAINE PATCH REMOVAL MC SCH ×2 (22:02→22:03)
[2022-09-18] MEDS: METHYL SALICYLATE/MENTHOL OINT 30 GM TUBE TP SCH (22:03)
[2022-09-18] MEDS: P-EPHED 60MG/TRIPROLIDI 2.5MG TABLET PO PRN (22:03)
[2022-09-19] MEDS: FERROUS SO4 325 MG TABLET (FP) PO SCH ×2 (09:53→21:20)
[2022-09-19] MEDS: PRENATAL VITAMINS W/ FOLIC ACID TABLET (FP) PO SCH (09:53)
[2022-09-19] MEDS: LISINOPRIL 20 MG TABLET PO SCH (09:54)
[2022-09-19] MEDS: GABAPENTIN 300 MG CAPSULE PO SCH ×3 (09:54→21:20)
[2022-09-19] MEDS: NIFEdipine E.R 60 MG TABLET PO SCH (09:54)
[2022-09-19] MEDS: metoPROLOL SUCCINATE 25 MG TAB.SR.24H (FP) PO SCH (09:54)
[2022-09-19] MEDS: HYDROCHLOROTHIAZIDE 25 MG TABLET (FP) PO SCH (09:54)
[2022-09-19] MEDS: SERTRALINE HCL 50 MG TABLET (FP) PO SCH (09:54)
[2022-09-19] MEDS: PANTOPRAZOLE 40 MG TABLET PO SCH (09:54)
[2022-09-19] MEDS: LIDOCAINE 5% TOPICAL PATCH TP SCH (09:55)
[2022-09-19] MEDS: FLUTICASONE PROP 0.05% 16 GM NASAL SPRAY NS SCH (09:55)
[2022-09-19] MEDS: NICOTINE 14 MG/24 HOURS TOPICAL PATCH TD SCH (09:55)
[2022-09-19] MEDS: METHOCARBAMOL 500 MG TABLET PO PRN ×2 (09:56→21:21)
[2022-09-19] MEDS: THIAMINE HCL 100 MG TABLET (FP) PO SCH (21:21)
[2022-09-19] MEDS: LIDOCAINE PATCH REMOVAL MC SCH ×2 (21:21)
[2022-09-19] MEDS: METHYL SALICYLATE/MENTHOL OINT 30 GM TUBE TP SCH (21:21)
[2022-09-19] MEDS: SUVOREXANT 10 MG TABLET PO PRN (22:20)
[2022-09-19] MEDS: QUEtiapine FUMARATE 200 MG TABLET PO SCH (22:20)
[2022-09-20] MEDS: GABAPENTIN 300 MG CAPSULE PO SCH ×3 (10:33→21:17)
[2022-09-20] MEDS: PRENATAL VITAMINS W/ FOLIC ACID TABLET (FP) PO SCH (10:33)
[2022-09-20] MEDS: LISINOPRIL 20 MG TABLET PO SCH (10:34)
[2022-09-20] MEDS: PANTOPRAZOLE 40 MG TABLET PO SCH (10:34)
[2022-09-20] MEDS: SERTRALINE HCL 50 MG TABLET (FP) PO SCH (10:35)
[2022-09-20] MEDS: FLUTICASONE PROP 0.05% 16 GM NASAL SPRAY NS SCH (10:35)
[2022-09-20] MEDS: FERROUS SO4 325 MG TABLET (FP) PO SCH ×2 (10:35→21:17)
[2022-09-20] MEDS: metoPROLOL SUCCINATE 25 MG TAB.SR.24H (FP) PO SCH (10:36)
[2022-09-20] MEDS: HYDROCHLOROTHIAZIDE 25 MG TABLET (FP) PO SCH (10:36)
[2022-09-20] MEDS: LIDOCAINE 5% TOPICAL PATCH TP SCH (10:37)
[2022-09-20] MEDS: NICOTINE 14 MG/24 HOURS TOPICAL PATCH TD SCH (10:37)
[2022-09-20] MEDS: NIFEdipine E.R 60 MG TABLET PO SCH (10:59)
[2022-09-20] MEDS: THIAMINE HCL 100 MG TABLET (FP) PO SCH (21:17)
[2022-09-20] MEDS: LIDOCAINE PATCH REMOVAL MC SCH ×2 (21:17→21:18)
[2022-09-20] MEDS: METHYL SALICYLATE/MENTHOL OINT 30 GM TUBE TP SCH (21:17)
[2022-09-20] MEDS: SUVOREXANT 10 MG TABLET PO PRN (22:30)
[2022-09-20] MEDS: QUEtiapine FUMARATE 200 MG TABLET PO SCH (22:30)
[2022-09-21] MEDS: PRENATAL VITAMINS W/ FOLIC ACID TABLET (FP) PO SCH (10:02)
[2022-09-21] MEDS: SERTRALINE HCL 50 MG TABLET (FP) PO SCH (10:03)
[2022-09-21] MEDS: metoPROLOL SUCCINATE 25 MG TAB.SR.24H (FP) PO SCH (10:03)
[2022-09-21] MEDS: LISINOPRIL 20 MG TABLET PO SCH (10:03)
[2022-09-21] MEDS: FERROUS SO4 325 MG TABLET (FP) PO SCH ×2 (10:04→21:38)
[2022-09-21] MEDS: NIFEdipine E.R 60 MG TABLET PO SCH (10:04)
[2022-09-21] MEDS: PANTOPRAZOLE 40 MG TABLET PO SCH (10:04)
[2022-09-21] MEDS: GABAPENTIN 300 MG CAPSULE PO SCH ×3 (10:04→21:38)
[2022-09-21] MEDS: HYDROCHLOROTHIAZIDE 25 MG TABLET (FP) PO SCH (10:04)
[2022-09-21] MEDS: FLUTICASONE PROP 0.05% 16 GM NASAL SPRAY NS SCH (10:05)
[2022-09-21] MEDS: LIDOCAINE 5% TOPICAL PATCH TP SCH (10:05)
[2022-09-21] MEDS: NICOTINE 14 MG/24 HOURS TOPICAL PATCH TD SCH (10:06)
[2022-09-21] MEDS: QUEtiapine FUMARATE 200 MG TABLET PO SCH (21:38)
[2022-09-21] MEDS: METHYL SALICYLATE/MENTHOL OINT 30 GM TUBE TP SCH (21:38)
[2022-09-21] MEDS: THIAMINE HCL 100 MG TABLET (FP) PO SCH (21:38)
[2022-09-21] MEDS: LIDOCAINE PATCH REMOVAL MC SCH ×2 (21:38→21:39)
[2022-09-21] MEDS: SUVOREXANT 10 MG TABLET PO PRN (21:40)
[2022-09-21] MEDS: METHOCARBAMOL 500 MG TABLET PO PRN (21:40)
[2022-09-22] MEDS: GABAPENTIN 300 MG CAPSULE PO SCH ×3 (10:16→21:57)
[2022-09-22] MEDS: NIFEdipine E.R 60 MG TABLET PO SCH (10:16)
[2022-09-22] MEDS: PRENATAL VITAMINS W/ FOLIC ACID TABLET (FP) PO SCH (10:16)
[2022-09-22] MEDS: PANTOPRAZOLE 40 MG TABLET PO SCH (10:16)
[2022-09-22] MEDS: metoPROLOL SUCCINATE 25 MG TAB.SR.24H (FP) PO SCH (10:16)
[2022-09-22] MEDS: SERTRALINE HCL 50 MG TABLET (FP) PO SCH (10:16)
[2022-09-22] MEDS: HYDROCHLOROTHIAZIDE 25 MG TABLET (FP) PO SCH (10:17)
[2022-09-22] MEDS: LIDOCAINE 5% TOPICAL PATCH TP SCH (10:17)
[2022-09-22] MEDS: FERROUS SO4 325 MG TABLET (FP) PO SCH ×2 (10:17→21:58)
[2022-09-22] MEDS: FLUTICASONE PROP 0.05% 16 GM NASAL SPRAY NS SCH (10:17)
[2022-09-22] MEDS: LISINOPRIL 20 MG TABLET PO SCH (10:17)
[2022-09-22] MEDS: NICOTINE 14 MG/24 HOURS TOPICAL PATCH TD SCH (10:18)
[2022-09-22] MEDS: METHYL SALICYLATE/MENTHOL OINT 30 GM TUBE TP SCH (21:57)
[2022-09-22] MEDS: LIDOCAINE PATCH REMOVAL MC SCH ×2 (21:57→21:58)
[2022-09-22] MEDS: QUEtiapine FUMARATE 200 MG TABLET PO SCH (21:58)
[2022-09-22] MEDS: METHOCARBAMOL 500 MG TABLET PO PRN (21:58)
[2022-09-22] MEDS: THIAMINE HCL 100 MG TABLET (FP) PO SCH (21:59)
[2022-09-22] MEDS: SUVOREXANT 10 MG TABLET PO PRN (21:59)
[2022-09-23] MEDS: PANTOPRAZOLE 40 MG TABLET PO SCH (10:21)
[2022-09-23] MEDS: SERTRALINE HCL 50 MG TABLET (FP) PO SCH (10:21)
[2022-09-23] MEDS: GABAPENTIN 300 MG CAPSULE PO SCH ×3 (10:21→21:48)
[2022-09-23] MEDS: metoPROLOL SUCCINATE 25 MG TAB.SR.24H (FP) PO SCH (10:21)
[2022-09-23] MEDS: NIFEdipine E.R 60 MG TABLET PO SCH (10:21)
[2022-09-23] MEDS: PRENATAL VITAMINS W/ FOLIC ACID TABLET (FP) PO SCH (10:21)
[2022-09-23] MEDS: LISINOPRIL 20 MG TABLET PO SCH (10:21)
[2022-09-23] MEDS: HYDROCHLOROTHIAZIDE 25 MG TABLET (FP) PO SCH (10:21)
[2022-09-23] MEDS: FLUTICASONE PROP 0.05% 16 GM NASAL SPRAY NS SCH (10:21)
[2022-09-23] MEDS: FERROUS SO4 325 MG TABLET (FP) PO SCH ×2 (10:21→21:47)
[2022-09-23] MEDS: NICOTINE 14 MG/24 HOURS TOPICAL PATCH TD SCH (10:21)
[2022-09-23] MEDS: METHOCARBAMOL 500 MG TABLET PO PRN ×2 (10:22→21:48)
[2022-09-23] MEDS: LIDOCAINE 5% TOPICAL PATCH TP SCH (10:22)
[2022-09-23] MEDS: ACETAMINOPHEN 325 MG TABLET (FP) PO PRN ×3 (10:22→21:48)
[2022-09-23] MEDS: SUVOREXANT 10 MG TABLET PO PRN (21:47)
[2022-09-23] MEDS: QUEtiapine FUMARATE 200 MG TABLET PO SCH (21:48)
[2022-09-23] MEDS: THIAMINE HCL 100 MG TABLET (FP) PO SCH (21:48)
[2022-09-23] MEDS: METHYL SALICYLATE/MENTHOL OINT 30 GM TUBE TP SCH (21:50)
[2022-09-23] MEDS: LIDOCAINE PATCH REMOVAL MC SCH ×2 (21:50)
[2022-09-24] MEDS: metoPROLOL SUCCINATE 25 MG TAB.SR.24H (FP) PO SCH (10:00)
[2022-09-24] MEDS: PRENATAL VITAMINS W/ FOLIC ACID TABLET (FP) PO SCH (10:00)
[2022-09-24] MEDS: FLUTICASONE PROP 0.05% 16 GM NASAL SPRAY NS SCH (10:00)
[2022-09-24] MEDS: PANTOPRAZOLE 40 MG TABLET PO SCH (10:00)
[2022-09-24] MEDS: GABAPENTIN 300 MG CAPSULE PO SCH ×3 (10:00→21:21)
[2022-09-24] MEDS: LISINOPRIL 20 MG TABLET PO SCH (10:00)
[2022-09-24] MEDS: HYDROCHLOROTHIAZIDE 25 MG TABLET (FP) PO SCH (10:01)
[2022-09-24] MEDS: SERTRALINE HCL 50 MG TABLET (FP) PO SCH (10:01)
[2022-09-24] MEDS: FERROUS SO4 325 MG TABLET (FP) PO SCH ×2 (10:01→21:22)
[2022-09-24] MEDS: NICOTINE 14 MG/24 HOURS TOPICAL PATCH TD SCH (10:01)
[2022-09-24] MEDS: LIDOCAINE 5% TOPICAL PATCH TP SCH (10:01)
[2022-09-24] MEDS: NIFEdipine E.R 60 MG TABLET PO SCH (10:01)
[2022-09-24] MEDS: ACETAMINOPHEN 325 MG TABLET (FP) PO PRN ×4 (10:02→21:37)
[2022-09-24] MEDS: METHOCARBAMOL 500 MG TABLET PO PRN ×2 (10:02→21:22)
[2022-09-24] MEDS: QUEtiapine FUMARATE 200 MG TABLET PO SCH (21:21)
[2022-09-24] MEDS: THIAMINE HCL 100 MG TABLET (FP) PO SCH (21:21)
[2022-09-24] MEDS: SUVOREXANT 10 MG TABLET PO PRN (21:23)
[2022-09-24] MEDS: LIDOCAINE PATCH REMOVAL MC SCH ×2 (21:24→21:25)
[2022-09-24] MEDS: METHYL SALICYLATE/MENTHOL OINT 30 GM TUBE TP SCH (21:24)
[2022-09-24] MEDS ORDERED: SUVOREXANT 10 MG TABLET PO PRN (22:00)
[2022-09-25] MEDS: FLUTICASONE PROP 0.05% 16 GM NASAL SPRAY NS SCH (10:05)
[2022-09-25] MEDS: metoPROLOL SUCCINATE 25 MG TAB.SR.24H (FP) PO SCH (10:06)
[2022-09-25] MEDS: NIFEdipine E.R 60 MG TABLET PO SCH (10:06)
[2022-09-25] MEDS: GABAPENTIN 300 MG CAPSULE PO SCH ×3 (10:06→21:39)
[2022-09-25] MEDS: FERROUS SO4 325 MG TABLET (FP) PO SCH ×2 (10:06→21:39)
[2022-09-25] MEDS: PRENATAL VITAMINS W/ FOLIC ACID TABLET (FP) PO SCH (10:06)
[2022-09-25] MEDS: LISINOPRIL 20 MG TABLET PO SCH (10:07)
[2022-09-25] MEDS: PANTOPRAZOLE 40 MG TABLET PO SCH (10:07)
[2022-09-25] MEDS: SERTRALINE HCL 50 MG TABLET (FP) PO SCH (10:07)
[2022-09-25] MEDS: HYDROCHLOROTHIAZIDE 25 MG TABLET (FP) PO SCH (10:07)
[2022-09-25] MEDS: ACETAMINOPHEN 325 MG TABLET (FP) PO PRN (10:08)
[2022-09-25] MEDS: LIDOCAINE 5% TOPICAL PATCH TP SCH (11:52)
[2022-09-25] MEDS: NICOTINE 14 MG/24 HOURS TOPICAL PATCH TD SCH (11:52)
[2022-09-25] MEDS: IBUPROFEN 400 MG TABLET (FP) PO PRN (14:34)
[2022-09-25] MEDS: AMOX TR/POT CLAV 500MG/125MG TABLETS (FP) PO SCH (16:48)
[2022-09-25] MEDS: QUEtiapine FUMARATE 200 MG TABLET PO SCH (21:39)
[2022-09-25] MEDS: LIDOCAINE PATCH REMOVAL MC SCH ×2 (21:39)
[2022-09-25] MEDS: METHYL SALICYLATE/MENTHOL OINT 30 GM TUBE TP SCH (21:39)
[2022-09-25] MEDS: METHOCARBAMOL 500 MG TABLET PO PRN (21:39)
[2022-09-25] MEDS: THIAMINE HCL 100 MG TABLET (FP) PO SCH (21:39)
[2022-09-25] MEDS: SUVOREXANT 10 MG TABLET PO PRN (21:40)
[2022-09-26] MEDS: IBUPROFEN 400 MG TABLET (FP) PO PRN ×2 (05:50→13:18)
[2022-09-26] MEDS: AMOX TR/POT CLAV 500MG/125MG TABLETS (FP) PO SCH ×2 (07:09→16:37)
[2022-09-26] MEDS ORDERED: BENZOCAINE 20 % GEL TUBE MM PRN (09:12)
[2022-09-26] MEDS: PANTOPRAZOLE 40 MG TABLET PO SCH (10:19)
[2022-09-26] MEDS: metoPROLOL SUCCINATE 25 MG TAB.SR.24H (FP) PO SCH (10:19)
[2022-09-26] MEDS: PRENATAL VITAMINS W/ FOLIC ACID TABLET (FP) PO SCH (10:19)
[2022-09-26] MEDS: LISINOPRIL 20 MG TABLET PO SCH (10:19)
[2022-09-26] MEDS: SERTRALINE HCL 50 MG TABLET (FP) PO SCH (10:19)
[2022-09-26] MEDS: FLUTICASONE PROP 0.05% 16 GM NASAL SPRAY NS SCH (10:19)
[2022-09-26] MEDS: NIFEdipine E.R 60 MG TABLET PO SCH (10:19)
[2022-09-26] MEDS: FERROUS SO4 325 MG TABLET (FP) PO SCH ×2 (10:19→21:20)
[2022-09-26] MEDS: HYDROCHLOROTHIAZIDE 25 MG TABLET (FP) PO SCH (10:19)
[2022-09-26] MEDS: LIDOCAINE 5% TOPICAL PATCH TP SCH (10:20)
[2022-09-26] MEDS: NICOTINE 14 MG/24 HOURS TOPICAL PATCH TD SCH (10:20)
[2022-09-26] MEDS: GABAPENTIN 300 MG CAPSULE PO SCH ×3 (10:20→21:20)
[2022-09-26] MEDS: ACETAMINOPHEN 325 MG TABLET (FP) PO PRN ×3 (10:21→21:22)
[2022-09-26] MEDS: METHOCARBAMOL 500 MG TABLET PO PRN ×2 (10:22→21:22)
[2022-09-26] MEDS: THIAMINE HCL 100 MG TABLET (FP) PO SCH (21:20)
[2022-09-26] MEDS: SUVOREXANT 15 MG TABLET PO PRN (21:22)
[2022-09-26] MEDS: LIDOCAINE PATCH REMOVAL MC SCH ×2 (22:17→22:18)
[2022-09-26] MEDS: METHYL SALICYLATE/MENTHOL OINT 30 GM TUBE TP SCH (22:17)
[2022-09-27] MEDS: hydrOXYzine PAMOATE 25 MG CAPSULE (FP) PO PRN (06:22)
[2022-09-27] MEDS: IBUPROFEN 400 MG TABLET (FP) PO PRN ×3 (06:22→21:21)
[2022-09-27] MEDS: AMOX TR/POT CLAV 500MG/125MG TABLETS (FP) PO SCH ×2 (07:08→16:43)
[2022-09-27] MEDS: SERTRALINE HCL 50 MG TABLET (FP) PO SCH (09:50)
[2022-09-27] MEDS: metoPROLOL SUCCINATE 25 MG TAB.SR.24H (FP) PO SCH (09:50)
[2022-09-27] MEDS: NIFEdipine E.R 60 MG TABLET PO SCH (09:50)
[2022-09-27] MEDS: FLUTICASONE PROP 0.05% 16 GM NASAL SPRAY NS SCH (09:50)
[2022-09-27] MEDS: LIDOCAINE 5% TOPICAL PATCH TP SCH (09:50)
[2022-09-27] MEDS: PRENATAL VITAMINS W/ FOLIC ACID TABLET (FP) PO SCH (09:50)
[2022-09-27] MEDS: LISINOPRIL 20 MG TABLET PO SCH (09:50)
[2022-09-27] MEDS: GABAPENTIN 300 MG CAPSULE PO SCH ×3 (09:50→21:20)
[2022-09-27] MEDS: HYDROCHLOROTHIAZIDE 25 MG TABLET (FP) PO SCH (09:50)
[2022-09-27] MEDS: FERROUS SO4 325 MG TABLET (FP) PO SCH ×2 (09:51→21:20)
[2022-09-27] MEDS: PANTOPRAZOLE 40 MG TABLET PO SCH (09:51)
[2022-09-27] MEDS: NICOTINE 14 MG/24 HOURS TOPICAL PATCH TD SCH (09:51)
[2022-09-27] MEDS: METHOCARBAMOL 500 MG TABLET PO PRN ×2 (09:51→21:20)
[2022-09-27] MEDS: ACETAMINOPHEN 325 MG TABLET (FP) PO PRN ×2 (09:52→16:44)
[2022-09-27] MEDS: ARIPiprazole 5 MG TABLET PO SCH (09:54)
[2022-09-27] MEDS: LIDOCAINE PATCH REMOVAL MC SCH ×2 (21:20)
[2022-09-27] MEDS: THIAMINE HCL 100 MG TABLET (FP) PO SCH (21:20)
[2022-09-27] MEDS: METHYL SALICYLATE/MENTHOL OINT 30 GM TUBE TP SCH (21:20)
[2022-09-27] MEDS: SUVOREXANT 15 MG TABLET PO PRN (21:21)
[2022-09-28] MEDS: IBUPROFEN 400 MG TABLET (FP) PO PRN ×2 (06:26→14:09)
[2022-09-28] MEDS: hydrOXYzine PAMOATE 25 MG CAPSULE (FP) PO PRN ×2 (06:27→21:22)
[2022-09-28] MEDS: AMOX TR/POT CLAV 500MG/125MG TABLETS (FP) PO SCH ×2 (07:01→17:55)
[2022-09-28] MEDS: PRENATAL VITAMINS W/ FOLIC ACID TABLET (FP) PO SCH (10:10)
[2022-09-28] MEDS: FLUTICASONE PROP 0.05% 16 GM NASAL SPRAY NS SCH (10:11)
[2022-09-28] MEDS: HYDROCHLOROTHIAZIDE 25 MG TABLET (FP) PO SCH (10:11)
[2022-09-28] MEDS: SERTRALINE HCL 50 MG TABLET (FP) PO SCH (10:11)
[2022-09-28] MEDS: FERROUS SO4 325 MG TABLET (FP) PO SCH ×2 (10:12→21:23)
[2022-09-28] MEDS: LISINOPRIL 20 MG TABLET PO SCH (10:12)
[2022-09-28] MEDS: PANTOPRAZOLE 40 MG TABLET PO SCH (10:12)
[2022-09-28] MEDS: ARIPiprazole 5 MG TABLET PO SCH (10:12)
[2022-09-28] MEDS: GABAPENTIN 300 MG CAPSULE PO SCH ×3 (10:13→21:23)
[2022-09-28] MEDS: NIFEdipine E.R 60 MG TABLET PO SCH (10:13)
[2022-09-28] MEDS: NICOTINE 14 MG/24 HOURS TOPICAL PATCH TD SCH (10:13)
[2022-09-28] MEDS: metoPROLOL SUCCINATE 25 MG TAB.SR.24H (FP) PO SCH (10:13)
[2022-09-28] MEDS: ACETAMINOPHEN 325 MG TABLET (FP) PO PRN ×2 (10:14→17:55)
[2022-09-28] MEDS: METHOCARBAMOL 500 MG TABLET PO PRN ×2 (10:15→21:23)
[2022-09-28] MEDS: LIDOCAINE 5% TOPICAL PATCH TP SCH (10:46)
[2022-09-28] MEDS: THIAMINE HCL 100 MG TABLET (FP) PO SCH (21:24)
[2022-09-28] MEDS: SUVOREXANT 15 MG TABLET PO PRN (21:24)
[2022-09-28] MEDS: LIDOCAINE PATCH REMOVAL MC SCH ×2 (21:25)
[2022-09-28] MEDS: METHYL SALICYLATE/MENTHOL OINT 30 GM TUBE TP SCH (21:25)
[2022-09-29] MEDS: IBUPROFEN 400 MG TABLET (FP) PO PRN ×3 (05:44→21:33)
[2022-09-29] MEDS: hydrOXYzine PAMOATE 25 MG CAPSULE (FP) PO PRN (05:45)
[2022-09-29] MEDS: AMOX TR/POT CLAV 500MG/125MG TABLETS (FP) PO SCH ×2 (07:06→17:09)
[2022-09-29] MEDS: FLUTICASONE PROP 0.05% 16 GM NASAL SPRAY NS SCH (10:20)
[2022-09-29] MEDS: PRENATAL VITAMINS W/ FOLIC ACID TABLET (FP) PO SCH (10:20)
[2022-09-29] MEDS: NICOTINE 14 MG/24 HOURS TOPICAL PATCH TD SCH (10:20)
[2022-09-29] MEDS: metoPROLOL SUCCINATE 25 MG TAB.SR.24H (FP) PO SCH (10:23)
[2022-09-29] MEDS: FERROUS SO4 325 MG TABLET (FP) PO SCH ×2 (10:24→21:31)
[2022-09-29] MEDS: LISINOPRIL 20 MG TABLET PO SCH (10:24)
[2022-09-29] MEDS: SERTRALINE HCL 50 MG TABLET (FP) PO SCH (10:24)
[2022-09-29] MEDS: HYDROCHLOROTHIAZIDE 25 MG TABLET (FP) PO SCH (10:24)
[2022-09-29] MEDS: NIFEdipine E.R 60 MG TABLET PO SCH (10:24)
[2022-09-29] MEDS: PANTOPRAZOLE 40 MG TABLET PO SCH (10:24)
[2022-09-29] MEDS: GABAPENTIN 300 MG CAPSULE PO SCH ×3 (10:24→21:31)
[2022-09-29] MEDS: METHOCARBAMOL 500 MG TABLET PO PRN ×2 (10:25→21:31)
[2022-09-29] MEDS: ACETAMINOPHEN 325 MG TABLET (FP) PO PRN ×2 (10:25→17:10)
[2022-09-29] MEDS: LIDOCAINE 5% TOPICAL PATCH TP SCH (10:27)
[2022-09-29] MEDS: ARIPiprazole 5 MG TABLET PO SCH (10:46)
[2022-09-29] MEDS: THIAMINE HCL 100 MG TABLET (FP) PO SCH (21:31)
[2022-09-29] MEDS: SUVOREXANT 15 MG TABLET PO PRN (21:32)
[2022-09-29] MEDS: METHYL SALICYLATE/MENTHOL OINT 30 GM TUBE TP SCH (21:33)
[2022-09-29] MEDS: LIDOCAINE PATCH REMOVAL MC SCH ×2 (21:33→21:34)
[2022-09-30] MEDS: hydrOXYzine PAMOATE 25 MG CAPSULE (FP) PO PRN (06:25)
[2022-09-30] MEDS: IBUPROFEN 400 MG TABLET (FP) PO PRN ×2 (06:25→16:45)
[2022-09-30] MEDS: AMOX TR/POT CLAV 500MG/125MG TABLETS (FP) PO SCH ×2 (07:04→16:44)
[2022-09-30] MEDS: PANTOPRAZOLE 40 MG TABLET PO SCH (10:22)
[2022-09-30] MEDS: metoPROLOL SUCCINATE 25 MG TAB.SR.24H (FP) PO SCH (10:22)
[2022-09-30] MEDS: ARIPiprazole 5 MG TABLET PO SCH (10:22)
[2022-09-30] MEDS: LISINOPRIL 20 MG TABLET PO SCH (10:22)
[2022-09-30] MEDS: NIFEdipine E.R 60 MG TABLET PO SCH (10:22)
[2022-09-30] MEDS: FERROUS SO4 325 MG TABLET (FP) PO SCH ×2 (10:22→21:18)
[2022-09-30] MEDS: GABAPENTIN 300 MG CAPSULE PO SCH ×3 (10:22→21:16)
[2022-09-30] MEDS: SERTRALINE HCL 50 MG TABLET (FP) PO SCH (10:22)
[2022-09-30] MEDS: FLUTICASONE PROP 0.05% 16 GM NASAL SPRAY NS SCH (10:22)
[2022-09-30] MEDS: HYDROCHLOROTHIAZIDE 25 MG TABLET (FP) PO SCH (10:22)
[2022-09-30] MEDS: METHOCARBAMOL 500 MG TABLET PO PRN ×2 (10:23→21:16)
[2022-09-30] MEDS: ACETAMINOPHEN 325 MG TABLET (FP) PO PRN ×3 (10:23→21:19)
[2022-09-30] MEDS: LIDOCAINE 5% TOPICAL PATCH TP SCH (10:24)
[2022-09-30] MEDS: NICOTINE 14 MG/24 HOURS TOPICAL PATCH TD SCH (10:24)
[2022-09-30] MEDS: PRENATAL VITAMINS W/ FOLIC ACID TABLET (FP) PO SCH (10:24)
[2022-09-30] MEDS: THIAMINE HCL 100 MG TABLET (FP) PO SCH (21:16)
[2022-09-30] MEDS: SUVOREXANT 5 MG TABLET PO PRN (21:18)
[2022-09-30] MEDS: LIDOCAINE PATCH REMOVAL MC SCH ×2 (21:20)
[2022-09-30] MEDS: METHYL SALICYLATE/MENTHOL OINT 30 GM TUBE TP SCH (21:20)
[2022-10-01] MEDS: IBUPROFEN 400 MG TABLET (FP) PO PRN ×3 (05:39→21:54)
[2022-10-01] MEDS: hydrOXYzine PAMOATE 25 MG CAPSULE (FP) PO PRN (05:40)
[2022-10-01] MEDS: AMOX TR/POT CLAV 500MG/125MG TABLETS (FP) PO SCH ×2 (07:29→17:08)
[2022-10-01 08:55] VITALS: RESP 18
[2022-10-01] MEDS: ARIPiprazole 5 MG TABLET PO SCH (09:33)
[2022-10-01] MEDS: PRENATAL VITAMINS W/ FOLIC ACID TABLET (FP) PO SCH (09:33)
[2022-10-01] MEDS: SERTRALINE HCL 50 MG TABLET (FP) PO SCH (09:34)
[2022-10-01] MEDS: NIFEdipine E.R 60 MG TABLET PO SCH (09:34)
[2022-10-01] MEDS: GABAPENTIN 300 MG CAPSULE PO SCH ×3 (09:34→21:52)
[2022-10-01] MEDS: LISINOPRIL 20 MG TABLET PO SCH (09:35)
[2022-10-01] MEDS: metoPROLOL SUCCINATE 25 MG TAB.SR.24H (FP) PO SCH (09:35)
[2022-10-01] MEDS: HYDROCHLOROTHIAZIDE 25 MG TABLET (FP) PO SCH (09:35)
[2022-10-01] MEDS: PANTOPRAZOLE 40 MG TABLET PO SCH (09:36)
[2022-10-01] MEDS: FLUTICASONE PROP 0.05% 16 GM NASAL SPRAY NS SCH (09:36)
[2022-10-01] MEDS: FERROUS SO4 325 MG TABLET (FP) PO SCH ×2 (09:36→21:53)
[2022-10-01] MEDS: METHOCARBAMOL 500 MG TABLET PO PRN ×2 (09:39→21:52)
[2022-10-01] MEDS: ACETAMINOPHEN 325 MG TABLET (FP) PO PRN (10:21)
[2022-10-01] MEDS: NICOTINE 14 MG/24 HOURS TOPICAL PATCH TD SCH (10:23)
[2022-10-01] MEDS: LIDOCAINE 5% TOPICAL PATCH TP SCH (10:23)
[2022-10-01] MEDS: METHYL SALICYLATE/MENTHOL OINT 30 GM TUBE TP SCH (21:53)
[2022-10-01] MEDS: SUVOREXANT 5 MG TABLET PO PRN (21:53)
[2022-10-01] MEDS: THIAMINE HCL 100 MG TABLET (FP) PO SCH (21:53)
[2022-10-01] MEDS: LIDOCAINE PATCH REMOVAL MC SCH ×2 (21:56→21:57)
[2022-10-02] MEDS: IBUPROFEN 400 MG TABLET (FP) PO PRN (06:52)
[2022-10-02 06:56] VITALS: TEMP 97.7
[2022-10-02] MEDS: AMOX TR/POT CLAV 500MG/125MG TABLETS (FP) PO SCH (07:26)
[2022-10-02 09:09] VITALS: BP 119/73; PULSE 78
[2022-10-02] MEDS: PRENATAL VITAMINS W/ FOLIC ACID TABLET (FP) PO SCH (09:24)
[2022-10-02] MEDS: PANTOPRAZOLE 40 MG TABLET PO SCH (09:25)
[2022-10-02] MEDS: NIFEdipine E.R 60 MG TABLET PO SCH (09:25)
[2022-10-02] MEDS: SERTRALINE HCL 50 MG TABLET (FP) PO SCH (09:25)
[2022-10-02] MEDS: HYDROCHLOROTHIAZIDE 25 MG TABLET (FP) PO SCH (09:26)
[2022-10-02] MEDS: LISINOPRIL 20 MG TABLET PO SCH (09:26)
[2022-10-02] MEDS: metoPROLOL SUCCINATE 25 MG TAB.SR.24H (FP) PO SCH (09:26)
[2022-10-02] MEDS: ARIPiprazole 5 MG TABLET PO SCH (09:26)
[2022-10-02] MEDS: FERROUS SO4 325 MG TABLET (FP) PO SCH (09:27)
[2022-10-02] MEDS: ACETAMINOPHEN 325 MG TABLET (FP) PO PRN (09:28)
[2022-10-02] MEDS: FLUTICASONE PROP 0.05% 16 GM NASAL SPRAY NS SCH (09:28)
[2022-10-02] MEDS: GABAPENTIN 300 MG CAPSULE PO SCH (09:30)
[2022-10-02] MEDS: LIDOCAINE 5% TOPICAL PATCH TP SCH (09:30)
[2022-10-02] MEDS: NICOTINE 14 MG/24 HOURS TOPICAL PATCH TD SCH (09:30)
== END 2022-10-02 09:43 | disposition home or self-care (01) | DRG 775 ==
LOC: Y3W 11:22
PROVIDERS: ADMIT Allergy & Immunology; ATTEND Psychiatry & Neurology Pain Medicine
PROC: HZ2ZZZZ Detoxification Services for Substance Abuse Treatment (ICD-10-PCS; principal; 2022-09-09)
DX: F10.20 Alcohol dependence, uncomplicated (principal); F12.20 Cannabis dependence, uncomplicated; F17.210 Nicotine dependence, cigarettes, uncomplicated; F20.9 Schizophrenia, unspecified; F19.24 Other psychoactive substance dependence with psychoactive substance-induced mood disorder; F32.A Depression, unspecified; F41.9 Anxiety disorder, unspecified; K21.9 Gastro-esophageal reflux disease without esophagitis; M25.561 Pain in right knee; M54.50 Low back pain, unspecified; G89.29 Other chronic pain; M25.562 Pain in left knee; R76.11 Nonspecific reaction to tuberculin skin test without active tuberculosis; Z59.00 Homelessness unspecified; Z56.0 Unemployment, unspecified
CPT/HCPCS: 36415; 86803

== ENCOUNTER 2022-10-25 15:03 | Inpatient (IN) | payer OTHER ==
[2022-10-25 16:42] VITALS: BMI 33.8
[2022-10-25] MEDS ORDERED: DOCUSATE SODIUM 100 MG CAPSULE (FP) PO PRN (17:22)
[2022-10-25] MEDS ORDERED: BENZONATATE 200 MG CAPSULE PO PRN (17:38)
[2022-10-25] MEDS ORDERED: BENZOCAINE/MENTHOL (CHLORASEPTIC ) LOZENGE MM PRN (17:38)
[2022-10-25] MEDS ORDERED: MAG HYDROX/AL HYDROX/SIMETH 30 ML UNIT-DOSE CUP PO PRN (17:38)
[2022-10-25] MEDS ORDERED: P-EPHED 60MG/TRIPROLIDI 2.5MG TABLET PO PRN (17:38)
[2022-10-25] MEDS ORDERED: LOPERAMIDE HCL 2 MG CAPSULE PO PRN (17:38)
[2022-10-25] MEDS ORDERED: POLYETHYLENE GLYCOL (HEALTHYLAX) 3350 17 GM PACKET PO PRN (17:38)
[2022-10-25] MEDS ORDERED: MAGNESIUM HYDROX 2400MG/30ML ORAL SUSPENSION 30 ML CUP PO PRN (17:38)
[2022-10-25] MEDS ORDERED: guaiFENesin 600 MG TABLET.ER (FP) PO PRN (17:38)
[2022-10-25] MEDS: THIAMINE HCL 100 MG TABLET (FP) PO SCH (21:39)
[2022-10-25] MEDS: GABAPENTIN 300 MG CAPSULE PO SCH (21:39)
[2022-10-25] MEDS: IBUPROFEN 400 MG TABLET (FP) PO PRN (21:40)
[2022-10-25] MEDS: LIDOCAINE PATCH REMOVAL MC SCH (21:42)
[2022-10-25] MEDS ORDERED: MELATONIN 5 MG TABLETS PO SCH (22:00)
[2022-10-26] MEDS: NICOTINE 10 MG CARTRIDGE (INHALER) IH PRN ×2 (06:18→21:33)
[2022-10-26] MEDS: GABAPENTIN 300 MG CAPSULE PO SCH ×3 (06:19→21:33)
[2022-10-26] MEDS: IBUPROFEN 400 MG TABLET (FP) PO PRN ×3 (06:19→22:29)
[2022-10-26] MEDS: PRENATAL VITAMINS W/ FOLIC ACID TABLET (FP) PO SCH (09:57)
[2022-10-26] MEDS: NIFEdipine E.R 60 MG TABLET PO SCH (09:57)
[2022-10-26] MEDS: HYDROCHLOROTHIAZIDE 25 MG TABLET (FP) PO SCH (09:58)
[2022-10-26] MEDS: metoPROLOL SUCCINATE 25 MG TAB.SR.24H (FP) PO SCH (09:58)
[2022-10-26] MEDS: LISINOPRIL 20 MG TABLET PO SCH (09:58)
[2022-10-26] MEDS ORDERED: FOLIC ACID 1 MG TABLET (FP) PO SCH (10:00)
[2022-10-26] MEDS ORDERED: LIDOCAINE 5% TOPICAL PATCH TP PRN (10:00)
[2022-10-26] MEDS ORDERED: LISINOPRIL 20 MG TABLET PO SCH (10:00)
[2022-10-26] MEDS ORDERED: PANTOPRAZOLE 40 MG TABLET PO SCH (10:00)
[2022-10-26] MEDS ORDERED: FLUTICASONE PROP 0.05% 16 GM NASAL SPRAY NS SCH (10:00)
[2022-10-26] MEDS ORDERED: PANTOPRAZOLE 40 MG TABLET PO ONE (10:00)
[2022-10-26] MEDS: SERTRALINE HCL 50 MG TABLET (FP) PO SCH (10:11)
[2022-10-26] MEDS: ARIPiprazole 5 MG TABLET PO SCH (10:11)
[2022-10-26 11:20] LABS: HEMATOCRIT 35.4 % (35.4-49); HEMOGLOBIN 11.8 GM/dL (11.7-16.9); MCHC 33.3 g/dl (32.0-35.9); MEAN CELL VOLUME 77.9 fl (80-96); MEAN PLT VOLUME 8.4 fl (7.5-11.1); PLATELET COUNT 296 10^3/uL (134-434); RBC 4.55 M/mm3 (4.00-5.60); RDW 15.5 % (11.9-15.9); WHITE BLOOD COUNT 4.7 K/mm3 (4.0-10.0)
[2022-10-26 11:35] LABS: CALCIUM 8.8 mg/dL (8.5-10.1)
[2022-10-26 11:36] LABS: ALBUMIN 3.3 g/dl (3.4-5.0); BLOOD UREA NITROGEN 14.2 mg/dL (7-18)
[2022-10-26 11:41] LABS: BILIRUBIN,TOTAL 0.5 mg/dL (0.2-1); CREATININE 1.2 mg/dL (0.55-1.3); TOT PROT 6.5 g/dl (6.4-8.2)
[2022-10-26 15:16] LABS: EPI CELLS 6 /uL (0-25.1); HYALINE CASTS 1 /uL (0-3.1); PH,URINE 6.5 (5.0-8.0); URINE APPEARANCE CLEAR; URINE BACTERIA 135 /uL (0-1359); URINE BILIRUBIN NEGATIVE (NEGATIVE); URINE COLOR YELLOW; URINE GLUCOSE (UA) NEGATIVE (NEGATIVE); URINE KETONE NEGATIVE (NEGATIVE); URINE LEUK ESTERASE TRACE (NEGATIVE); URINE NITRITE NEGATIVE (NEGATIVE); URINE PROTEIN TRACE (NEGATIVE); URINE RBC 92 /uL (0-23.9); URINE WBC 22 /uL (0-25.8)
[2022-10-26] MEDS: LIDOCAINE PATCH REMOVAL MC SCH (21:32)
[2022-10-26] MEDS: THIAMINE HCL 100 MG TABLET (FP) PO SCH (21:33)
[2022-10-26] MEDS: ACETAMINOPHEN 325 MG TABLET (FP) PO PRN (21:37)
[2022-10-26] MEDS: SUVOREXANT 10 MG TABLET PO PRN (21:39)
[2022-10-26] MEDS: FLUTICASONE PROP 0.05% 16 GM NASAL SPRAY NS SCH (21:56)
[2022-10-26] MEDS: hydrOXYzine PAMOATE 25 MG CAPSULE (FP) PO PRN (22:29)
[2022-10-27] MEDS: hydrOXYzine PAMOATE 25 MG CAPSULE (FP) PO PRN ×2 (06:16→21:34)
[2022-10-27] MEDS: IBUPROFEN 400 MG TABLET (FP) PO PRN ×3 (06:16→21:34)
[2022-10-27] MEDS: GABAPENTIN 300 MG CAPSULE PO SCH ×3 (06:16→21:30)
[2022-10-27] MEDS: PANTOPRAZOLE 40 MG TABLET PO SCH (06:16)
[2022-10-27] MEDS: NICOTINE 10 MG CARTRIDGE (INHALER) IH PRN ×2 (06:18→22:15)
[2022-10-27] MEDS: PRENATAL VITAMINS W/ FOLIC ACID TABLET (FP) PO SCH (09:44)
[2022-10-27] MEDS: metoPROLOL SUCCINATE 25 MG TAB.SR.24H (FP) PO SCH (09:45)
[2022-10-27] MEDS: LISINOPRIL 20 MG TABLET PO SCH (09:45)
[2022-10-27] MEDS: HYDROCHLOROTHIAZIDE 25 MG TABLET (FP) PO SCH (09:45)
[2022-10-27] MEDS: SERTRALINE HCL 50 MG TABLET (FP) PO SCH (09:45)
[2022-10-27] MEDS: ARIPiprazole 5 MG TABLET PO SCH (09:45)
[2022-10-27] MEDS: NIFEdipine E.R 60 MG TABLET PO SCH (09:45)
[2022-10-27] MEDS: FLUTICASONE PROP 0.05% 16 GM NASAL SPRAY NS SCH ×2 (09:45→21:33)
[2022-10-27] MEDS: FERROUS SO4 325 MG TABLET (FP) PO SCH (12:20)
[2022-10-27] MEDS: METHOCARBAMOL 500 MG TABLET PO PRN ×2 (12:22→21:32)
[2022-10-27] MEDS: ACETAMINOPHEN 325 MG TABLET (FP) PO PRN (18:30)
[2022-10-27] MEDS: LIDOCAINE PATCH REMOVAL MC SCH (21:30)
[2022-10-27] MEDS: THIAMINE HCL 100 MG TABLET (FP) PO SCH (21:30)
[2022-10-27] MEDS: SUVOREXANT 10 MG TABLET PO PRN (21:32)
[2022-10-28] MEDS: IBUPROFEN 400 MG TABLET (FP) PO PRN ×3 (06:02→21:16)
[2022-10-28] MEDS: PANTOPRAZOLE 40 MG TABLET PO SCH (06:03)
[2022-10-28] MEDS: GABAPENTIN 300 MG CAPSULE PO SCH ×3 (06:03→21:13)
[2022-10-28] MEDS: hydrOXYzine PAMOATE 25 MG CAPSULE (FP) PO PRN ×2 (06:03→21:13)
[2022-10-28] MEDS: LISINOPRIL 20 MG TABLET PO SCH (09:51)
[2022-10-28] MEDS: PRENATAL VITAMINS W/ FOLIC ACID TABLET (FP) PO SCH (09:51)
[2022-10-28] MEDS: SERTRALINE HCL 50 MG TABLET (FP) PO SCH (09:52)
[2022-10-28] MEDS: NIFEdipine E.R 60 MG TABLET PO SCH (09:52)
[2022-10-28] MEDS: HYDROCHLOROTHIAZIDE 25 MG TABLET (FP) PO SCH (09:52)
[2022-10-28] MEDS: FLUTICASONE PROP 0.05% 16 GM NASAL SPRAY NS SCH ×2 (09:52→21:12)
[2022-10-28] MEDS: FERROUS SO4 325 MG TABLET (FP) PO SCH (09:52)
[2022-10-28] MEDS: ARIPiprazole 5 MG TABLET PO SCH (09:52)
[2022-10-28] MEDS: METHOCARBAMOL 500 MG TABLET PO PRN ×2 (09:54→21:16)
[2022-10-28] MEDS: metoPROLOL SUCCINATE 25 MG TAB.SR.24H (FP) PO SCH (10:00)
[2022-10-28] MEDS: NICOTINE 10 MG CARTRIDGE (INHALER) IH PRN (12:09)
[2022-10-28] MEDS: THIAMINE HCL 100 MG TABLET (FP) PO SCH (21:13)
[2022-10-28] MEDS: LIDOCAINE PATCH REMOVAL MC SCH (21:14)
[2022-10-28] MEDS: SUVOREXANT 10 MG TABLET PO PRN (21:15)
[2022-10-29] MEDS: GABAPENTIN 300 MG CAPSULE PO SCH ×3 (06:02→21:12)
[2022-10-29] MEDS: IBUPROFEN 400 MG TABLET (FP) PO PRN ×3 (06:02→22:22)
[2022-10-29] MEDS: PANTOPRAZOLE 40 MG TABLET PO SCH (06:02)
[2022-10-29] MEDS: metoPROLOL SUCCINATE 25 MG TAB.SR.24H (FP) PO SCH (09:58)
[2022-10-29] MEDS: SERTRALINE HCL 50 MG TABLET (FP) PO SCH (09:59)
[2022-10-29] MEDS: HYDROCHLOROTHIAZIDE 25 MG TABLET (FP) PO SCH (09:59)
[2022-10-29] MEDS: LISINOPRIL 20 MG TABLET PO SCH (09:59)
[2022-10-29] MEDS: FLUTICASONE PROP 0.05% 16 GM NASAL SPRAY NS SCH ×2 (09:59→21:13)
[2022-10-29] MEDS: FERROUS SO4 325 MG TABLET (FP) PO SCH (09:59)
[2022-10-29] MEDS: PRENATAL VITAMINS W/ FOLIC ACID TABLET (FP) PO SCH (09:59)
[2022-10-29] MEDS: ARIPiprazole 5 MG TABLET PO SCH (09:59)
[2022-10-29] MEDS: NIFEdipine E.R 60 MG TABLET PO SCH (09:59)
[2022-10-29] MEDS: NICOTINE 10 MG CARTRIDGE (INHALER) IH PRN ×2 (10:00→22:53)
[2022-10-29] MEDS: hydrOXYzine PAMOATE 25 MG CAPSULE (FP) PO PRN ×2 (10:01→21:17)
[2022-10-29] MEDS: METHOCARBAMOL 500 MG TABLET PO PRN ×2 (10:01→21:16)
[2022-10-29] MEDS: guaiFENesin 200 MG/10 ML 10 ML UNIT-DOSE CUPS PO PRN (21:12)
[2022-10-29] MEDS: THIAMINE HCL 100 MG TABLET (FP) PO SCH (21:12)
[2022-10-29] MEDS: SUVOREXANT 10 MG TABLET PO PRN (21:16)
[2022-10-29] MEDS: ACETAMINOPHEN 325 MG TABLET (FP) PO PRN (21:17)
[2022-10-29] MEDS: LIDOCAINE PATCH REMOVAL MC SCH (21:24)
[2022-10-30] MEDS: PANTOPRAZOLE 40 MG TABLET PO SCH (06:21)
[2022-10-30] MEDS: IBUPROFEN 400 MG TABLET (FP) PO PRN ×3 (06:21→21:32)
[2022-10-30] MEDS: GABAPENTIN 300 MG CAPSULE PO SCH ×3 (06:22→21:30)
[2022-10-30] MEDS: ARIPiprazole 5 MG TABLET PO SCH (09:52)
[2022-10-30] MEDS: SERTRALINE HCL 50 MG TABLET (FP) PO SCH (09:52)
[2022-10-30] MEDS: LISINOPRIL 20 MG TABLET PO SCH (09:52)
[2022-10-30] MEDS: FLUTICASONE PROP 0.05% 16 GM NASAL SPRAY NS SCH ×2 (09:52→21:35)
[2022-10-30] MEDS: NIFEdipine E.R 60 MG TABLET PO SCH (09:53)
[2022-10-30] MEDS: HYDROCHLOROTHIAZIDE 25 MG TABLET (FP) PO SCH (09:53)
[2022-10-30] MEDS: FERROUS SO4 325 MG TABLET (FP) PO SCH (09:53)
[2022-10-30] MEDS: metoPROLOL SUCCINATE 25 MG TAB.SR.24H (FP) PO SCH (09:53)
[2022-10-30] MEDS: PRENATAL VITAMINS W/ FOLIC ACID TABLET (FP) PO SCH (09:54)
[2022-10-30] MEDS: hydrOXYzine PAMOATE 25 MG CAPSULE (FP) PO PRN ×2 (09:55→21:30)
[2022-10-30] MEDS: METHOCARBAMOL 500 MG TABLET PO PRN ×2 (09:55→21:30)
[2022-10-30] MEDS: guaiFENesin 200 MG/10 ML 10 ML UNIT-DOSE CUPS PO PRN ×3 (09:56→21:32)
[2022-10-30] MEDS: NICOTINE 10 MG CARTRIDGE (INHALER) IH PRN ×2 (11:06→21:36)
[2022-10-30] MEDS: THIAMINE HCL 100 MG TABLET (FP) PO SCH (21:30)
[2022-10-30] MEDS: LIDOCAINE PATCH REMOVAL MC SCH (21:30)
[2022-10-30] MEDS: SUVOREXANT 10 MG TABLET PO PRN (21:34)
[2022-10-31] MEDS: LISINOPRIL 20 MG TABLET PO SCH (06:13)
[2022-10-31] MEDS: NIFEdipine E.R 60 MG TABLET PO SCH (06:14)
[2022-10-31] MEDS: PANTOPRAZOLE 40 MG TABLET PO SCH (06:14)
[2022-10-31] MEDS: GABAPENTIN 300 MG CAPSULE PO SCH ×3 (06:17→21:38)
[2022-10-31] MEDS: HYDROCHLOROTHIAZIDE 25 MG TABLET (FP) PO SCH (06:17)
[2022-10-31] MEDS: IBUPROFEN 400 MG TABLET (FP) PO PRN ×3 (06:17→21:37)
[2022-10-31] MEDS: PRENATAL VITAMINS W/ FOLIC ACID TABLET (FP) PO SCH (09:40)
[2022-10-31] MEDS: SERTRALINE HCL 50 MG TABLET (FP) PO SCH (09:40)
[2022-10-31] MEDS: ARIPiprazole 5 MG TABLET PO SCH (09:40)
[2022-10-31] MEDS: FERROUS SO4 325 MG TABLET (FP) PO SCH (09:40)
[2022-10-31] MEDS: FLUTICASONE PROP 0.05% 16 GM NASAL SPRAY NS SCH ×2 (09:41→21:37)
[2022-10-31] MEDS: hydrOXYzine PAMOATE 25 MG CAPSULE (FP) PO PRN ×2 (09:41→21:37)
[2022-10-31] MEDS: METHOCARBAMOL 500 MG TABLET PO PRN ×2 (09:41→21:37)
[2022-10-31] MEDS: guaiFENesin 200 MG/10 ML 10 ML UNIT-DOSE CUPS PO PRN ×2 (09:43→21:39)
[2022-10-31] MEDS: NICOTINE 10 MG CARTRIDGE (INHALER) IH PRN ×2 (10:27→21:45)
[2022-10-31 11:11] LABS: URINE APPEARANCE CLEAR; URINE BILIRUBIN NEGATIVE (NEGATIVE); URINE COLOR YELLOW; URINE GLUCOSE (UA) NEGATIVE (NEGATIVE); URINE KETONE NEGATIVE (NEGATIVE); URINE LEUK ESTERASE NEGATIVE (NEGATIVE); URINE NITRITE NEGATIVE (NEGATIVE); URINE PROTEIN NEGATIVE (NEGATIVE); URINE UROBILINOGEN 0.2 mg/dL (0.2-1.0)
[2022-10-31] MEDS: THIAMINE HCL 100 MG TABLET (FP) PO SCH (21:37)
[2022-10-31] MEDS: SUVOREXANT 15 MG TABLET PO PRN (21:39)
[2022-10-31] MEDS: METHYL SALICYLATE/MENTHOL OINT 30 GM TUBE TP SCH (21:45)
[2022-10-31] MEDS: LIDOCAINE PATCH REMOVAL MC SCH (21:46)
[2022-11-01] MEDS: LISINOPRIL 20 MG TABLET PO SCH (06:11)
[2022-11-01] MEDS: NIFEdipine E.R 60 MG TABLET PO SCH (06:11)
[2022-11-01] MEDS: GABAPENTIN 300 MG CAPSULE PO SCH ×3 (06:12→21:16)
[2022-11-01] MEDS: HYDROCHLOROTHIAZIDE 25 MG TABLET (FP) PO SCH (06:12)
[2022-11-01] MEDS: NICOTINE 10 MG CARTRIDGE (INHALER) IH PRN (06:12)
[2022-11-01] MEDS: PANTOPRAZOLE 40 MG TABLET PO SCH (06:12)
[2022-11-01] MEDS: SERTRALINE HCL 50 MG TABLET (FP) PO SCH (09:41)
[2022-11-01] MEDS: ARIPiprazole 5 MG TABLET PO SCH (09:41)
[2022-11-01] MEDS: FERROUS SO4 325 MG TABLET (FP) PO SCH (09:41)
[2022-11-01] MEDS: PRENATAL VITAMINS W/ FOLIC ACID TABLET (FP) PO SCH (09:41)
[2022-11-01] MEDS: FLUTICASONE PROP 0.05% 16 GM NASAL SPRAY NS SCH ×2 (09:41→21:17)
[2022-11-01] MEDS: METHOCARBAMOL 500 MG TABLET PO PRN ×2 (09:43→21:21)
[2022-11-01] MEDS: hydrOXYzine PAMOATE 25 MG CAPSULE (FP) PO PRN ×2 (09:43→21:21)
[2022-11-01] MEDS: guaiFENesin 200 MG/10 ML 10 ML UNIT-DOSE CUPS PO PRN ×3 (09:43→21:21)
[2022-11-01] MEDS: IBUPROFEN 400 MG TABLET (FP) PO PRN ×2 (13:47→21:20)
[2022-11-01] MEDS: NICOTINE POLACRILEX 2 MG GUM BUC PRN ×2 (15:57→19:40)
[2022-11-01] MEDS: THIAMINE HCL 100 MG TABLET (FP) PO SCH (21:16)
[2022-11-01] MEDS: METHYL SALICYLATE/MENTHOL OINT 30 GM TUBE TP SCH (21:17)
[2022-11-01] MEDS: SUVOREXANT 15 MG TABLET PO PRN (21:23)
[2022-11-01] MEDS: LIDOCAINE PATCH REMOVAL MC SCH (22:56)
[2022-11-02] MEDS: NIFEdipine E.R 60 MG TABLET PO SCH (06:04)
[2022-11-02] MEDS: PANTOPRAZOLE 40 MG TABLET PO SCH (06:04)
[2022-11-02] MEDS: GABAPENTIN 300 MG CAPSULE PO SCH ×3 (06:04→21:20)
[2022-11-02] MEDS: LISINOPRIL 20 MG TABLET PO SCH (06:04)
[2022-11-02] MEDS: HYDROCHLOROTHIAZIDE 25 MG TABLET (FP) PO SCH (06:04)
[2022-11-02] MEDS: IBUPROFEN 400 MG TABLET (FP) PO PRN ×3 (06:05→21:19)
[2022-11-02] MEDS: NICOTINE POLACRILEX 2 MG GUM BUC PRN ×3 (07:20→18:25)
[2022-11-02] MEDS: PRENATAL VITAMINS W/ FOLIC ACID TABLET (FP) PO SCH (10:11)
[2022-11-02] MEDS: FLUTICASONE PROP 0.05% 16 GM NASAL SPRAY NS SCH ×2 (10:12→21:20)
[2022-11-02] MEDS: SERTRALINE HCL 50 MG TABLET (FP) PO SCH (10:12)
[2022-11-02] MEDS: FERROUS SO4 325 MG TABLET (FP) PO SCH (10:12)
[2022-11-02] MEDS: ARIPiprazole 5 MG TABLET PO SCH (10:12)
[2022-11-02] MEDS: hydrOXYzine PAMOATE 25 MG CAPSULE (FP) PO PRN ×2 (10:13→22:26)
[2022-11-02] MEDS: METHOCARBAMOL 500 MG TABLET PO PRN ×2 (10:14→21:20)
[2022-11-02] MEDS: SUVOREXANT 15 MG TABLET PO PRN (21:19)
[2022-11-02] MEDS: THIAMINE HCL 100 MG TABLET (FP) PO SCH (21:20)
[2022-11-02] MEDS: LIDOCAINE PATCH REMOVAL MC SCH (21:20)
[2022-11-02] MEDS: METHYL SALICYLATE/MENTHOL OINT 30 GM TUBE TP SCH (21:21)
[2022-11-03] MEDS: NIFEdipine E.R 60 MG TABLET PO SCH (06:07)
[2022-11-03] MEDS: PANTOPRAZOLE 40 MG TABLET PO SCH (06:07)
[2022-11-03] MEDS: HYDROCHLOROTHIAZIDE 25 MG TABLET (FP) PO SCH (06:07)
[2022-11-03] MEDS: LISINOPRIL 20 MG TABLET PO SCH (06:07)
[2022-11-03] MEDS: GABAPENTIN 300 MG CAPSULE PO SCH ×3 (06:07→21:30)
[2022-11-03] MEDS: IBUPROFEN 400 MG TABLET (FP) PO PRN ×3 (06:10→21:29)
[2022-11-03] MEDS: NICOTINE POLACRILEX 2 MG GUM BUC PRN ×4 (06:11→21:33)
[2022-11-03] MEDS: SERTRALINE HCL 50 MG TABLET (FP) PO SCH (09:44)
[2022-11-03] MEDS: FERROUS SO4 325 MG TABLET (FP) PO SCH (09:44)
[2022-11-03] MEDS: PRENATAL VITAMINS W/ FOLIC ACID TABLET (FP) PO SCH (09:45)
[2022-11-03] MEDS: ARIPiprazole 5 MG TABLET PO SCH (09:45)
[2022-11-03] MEDS: hydrOXYzine PAMOATE 25 MG CAPSULE (FP) PO PRN ×2 (09:46→21:30)
[2022-11-03] MEDS: METHOCARBAMOL 500 MG TABLET PO PRN ×2 (09:46→21:30)
[2022-11-03] MEDS: FLUTICASONE PROP 0.05% 16 GM NASAL SPRAY NS SCH ×2 (09:46→21:31)
[2022-11-03] MEDS: guaiFENesin 200 MG/10 ML 10 ML UNIT-DOSE CUPS PO PRN (09:48)
[2022-11-03] MEDS: THIAMINE HCL 100 MG TABLET (FP) PO SCH (21:29)
[2022-11-03] MEDS: SUVOREXANT 15 MG TABLET PO PRN (21:29)
[2022-11-03] MEDS: METHYL SALICYLATE/MENTHOL OINT 30 GM TUBE TP SCH (21:31)
[2022-11-03] MEDS: LIDOCAINE PATCH REMOVAL MC SCH (21:38)
[2022-11-04] MEDS: LISINOPRIL 20 MG TABLET PO SCH (06:14)
[2022-11-04] MEDS: GABAPENTIN 300 MG CAPSULE PO SCH ×3 (06:14→21:21)
[2022-11-04] MEDS: NIFEdipine E.R 60 MG TABLET PO SCH (06:15)
[2022-11-04] MEDS: HYDROCHLOROTHIAZIDE 25 MG TABLET (FP) PO SCH (06:15)
[2022-11-04] MEDS: PANTOPRAZOLE 40 MG TABLET PO SCH (06:15)
[2022-11-04] MEDS: IBUPROFEN 400 MG TABLET (FP) PO PRN ×3 (06:16→21:20)
[2022-11-04] MEDS: NICOTINE POLACRILEX 2 MG GUM BUC PRN ×3 (06:18→19:12)
[2022-11-04] MEDS: FLUTICASONE PROP 0.05% 16 GM NASAL SPRAY NS SCH ×2 (09:50→21:22)
[2022-11-04] MEDS: ARIPiprazole 5 MG TABLET PO SCH (09:50)
[2022-11-04] MEDS: SERTRALINE HCL 50 MG TABLET (FP) PO SCH (09:50)
[2022-11-04] MEDS: FERROUS SO4 325 MG TABLET (FP) PO SCH (09:50)
[2022-11-04] MEDS: PRENATAL VITAMINS W/ FOLIC ACID TABLET (FP) PO SCH (09:51)
[2022-11-04] MEDS: METHOCARBAMOL 500 MG TABLET PO PRN ×2 (09:52→21:21)
[2022-11-04] MEDS: hydrOXYzine PAMOATE 25 MG CAPSULE (FP) PO PRN ×2 (09:52→21:24)
[2022-11-04] MEDS: THIAMINE HCL 100 MG TABLET (FP) PO SCH (21:20)
[2022-11-04] MEDS: METHYL SALICYLATE/MENTHOL OINT 30 GM TUBE TP SCH (21:21)
[2022-11-04] MEDS: SUVOREXANT 15 MG TABLET PO PRN (21:21)
[2022-11-04] MEDS: LIDOCAINE PATCH REMOVAL MC SCH (21:22)
[2022-11-05] MEDS: LISINOPRIL 20 MG TABLET PO SCH (06:02)
[2022-11-05] MEDS: GABAPENTIN 300 MG CAPSULE PO SCH ×3 (06:02→21:25)
[2022-11-05] MEDS: HYDROCHLOROTHIAZIDE 25 MG TABLET (FP) PO SCH (06:02)
[2022-11-05] MEDS: IBUPROFEN 400 MG TABLET (FP) PO PRN ×3 (06:04→21:26)
[2022-11-05] MEDS: NICOTINE POLACRILEX 2 MG GUM BUC PRN ×6 (06:07→21:28)
[2022-11-05] MEDS: NIFEdipine E.R 60 MG TABLET PO SCH (06:31)
[2022-11-05] MEDS: PANTOPRAZOLE 40 MG TABLET PO SCH (06:31)
[2022-11-05 06:32] VITALS: TEMP 97.8
[2022-11-05] MEDS: FLUTICASONE PROP 0.05% 16 GM NASAL SPRAY NS SCH ×2 (09:42→21:27)
[2022-11-05] MEDS: SERTRALINE HCL 50 MG TABLET (FP) PO SCH (09:42)
[2022-11-05] MEDS: ARIPiprazole 5 MG TABLET PO SCH (09:42)
[2022-11-05] MEDS: PRENATAL VITAMINS W/ FOLIC ACID TABLET (FP) PO SCH (09:42)
[2022-11-05] MEDS: FERROUS SO4 325 MG TABLET (FP) PO SCH (09:42)
[2022-11-05] MEDS: hydrOXYzine PAMOATE 25 MG CAPSULE (FP) PO PRN ×3 (09:43→21:25)
[2022-11-05] MEDS: METHOCARBAMOL 500 MG TABLET PO PRN ×2 (09:43→21:25)
[2022-11-05] MEDS: SUVOREXANT 15 MG TABLET PO PRN (21:25)
[2022-11-05] MEDS: THIAMINE HCL 100 MG TABLET (FP) PO SCH (21:25)
[2022-11-05] MEDS: METHYL SALICYLATE/MENTHOL OINT 30 GM TUBE TP SCH (21:33)
[2022-11-05] MEDS: LIDOCAINE PATCH REMOVAL MC SCH (21:34)
[2022-11-05 22:12] VITALS: PULSE 65
[2022-11-06] MEDS: LISINOPRIL 20 MG TABLET PO SCH (06:21)
[2022-11-06] MEDS: GABAPENTIN 300 MG CAPSULE PO SCH (06:21)
[2022-11-06] MEDS: NIFEdipine E.R 60 MG TABLET PO SCH (06:21)
[2022-11-06] MEDS: IBUPROFEN 400 MG TABLET (FP) PO PRN (06:22)
[2022-11-06] MEDS: PANTOPRAZOLE 40 MG TABLET PO SCH (06:22)
[2022-11-06] MEDS: NICOTINE POLACRILEX 2 MG GUM BUC PRN (06:22)
[2022-11-06] MEDS: HYDROCHLOROTHIAZIDE 25 MG TABLET (FP) PO SCH (06:22)
[2022-11-06 07:01] VITALS: BP 163/97; RESP 18
== END 2022-11-06 08:45 | disposition home or self-care (01) | DRG 772 ==
LOC: YASAS 15:03 → Y5N 20:38
PROVIDERS: ADMIT Allergy & Immunology; ATTEND Psychiatry & Neurology Pain Medicine
PROC: HZ42ZZZ Group Counseling for Substance Abuse Treatment, Cognitive-Behavioral (ICD-10-PCS; principal; 2022-10-25)
DX: F10.20 Alcohol dependence, uncomplicated (principal); F14.20 Cocaine dependence, uncomplicated; F17.210 Nicotine dependence, cigarettes, uncomplicated; F19.24 Other psychoactive substance dependence with psychoactive substance-induced mood disorder; F19.282 Other psychoactive substance dependence with psychoactive substance-induced sleep disorder; F31.9 Bipolar disorder, unspecified; F41.9 Anxiety disorder, unspecified; I10 Essential (primary) hypertension; R60.0 Localized edema; M19.90 Unspecified osteoarthritis, unspecified site; Z99.89 Dependence on other enabling machines and devices; Z59.02 Unsheltered homelessness
CPT/HCPCS: 36415; 80053; 81003; 82306; 85027; 86780; 87086; C9803-CS; U0003; U0005

== ENCOUNTER 2022-12-18 10:36 | Inpatient (IN) | payer OTHER ==
[2022-12-18 10:58] VITALS: BMI 31.2
[2022-12-18] MEDS ORDERED: guaiFENesin 600 MG TABLET.ER (FP) PO PRN (12:51)
[2022-12-18] MEDS ORDERED: COLLOIDAL OATMEAL 1 BAR EACH TP PRN (12:51)
[2022-12-18] MEDS ORDERED: POLYETHYLENE GLYCOL (HEALTHYLAX) 3350 17 GM PACKET PO PRN (12:51)
[2022-12-18] MEDS ORDERED: IBUPROFEN 600 MG TABLET (FP) PO PRN (12:51)
[2022-12-18] MEDS ORDERED: ACETAMINOPHEN 325 MG TABLET (FP) PO PRN (12:51)
[2022-12-18] MEDS ORDERED: BISMUTH SUBSALICYLATE 524 MG/30 ML PO PRN (12:51)
[2022-12-18] MEDS ORDERED: NICOTINE 10 MG CARTRIDGE (INHALER) IH PRN (12:51)
[2022-12-18] MEDS ORDERED: NICOTINE POLACRILEX 2 MG GUM BUC PRN (12:51)
[2022-12-18] MEDS ORDERED: AMMONIUM LACTATE 12% LOTION 225 GM BOTTLE TP PRN (12:51)
[2022-12-18] MEDS ORDERED: MAG HYDROX/AL HYDROX/SIMETH 30 ML UNIT-DOSE CUP PO PRN (12:51)
[2022-12-18] MEDS ORDERED: LOPERAMIDE HCL 2 MG CAPSULE PO PRN (12:51)
[2022-12-18] MEDS ORDERED: IBUPROFEN 400 MG TABLET (FP) PO PRN (12:51)
[2022-12-18] MEDS ORDERED: NALOXONE HCL (KLOXXADO) 8 MG SPRAY NS PRN (12:51)
[2022-12-18] MEDS ORDERED: BENZONATATE 200 MG CAPSULE PO PRN (12:51)
[2022-12-18] MEDS ORDERED: DICYCLOMINE HCL 10 MG CAPSULE PO PRN (12:51)
[2022-12-18] MEDS ORDERED: ONDANSETRON *ODT* 4 MG TABLET SL PRN (12:51)
[2022-12-18] MEDS ORDERED: METHOCARBAMOL 500 MG TABLET PO PRN (12:51)
[2022-12-18] MEDS ORDERED: MAGNESIUM HYDROX 2400MG/30ML ORAL SUSPENSION 30 ML CUP PO PRN (12:51)
[2022-12-18] MEDS ORDERED: BENZOCAINE/MENTHOL (CHLORASEPTIC ) LOZENGE MM PRN (12:51)
[2022-12-18] MEDS ORDERED: NALOXONE HCL 0.4 MG/ML VIAL IM PRN (12:51)
[2022-12-18] MEDS ORDERED: NICOTINE 21 MG/24 HOURS TOPICAL PATCH TD SCH (13:00)
[2022-12-18] MEDS: PANTOPRAZOLE 40 MG TABLET PO SCH (13:15)
[2022-12-18] MEDS: LISINOPRIL 20 MG TABLET PO SCH (13:15)
[2022-12-18] MEDS: HYDROCHLOROTHIAZIDE 25 MG TABLET (FP) PO SCH (13:15)
[2022-12-18] MEDS ORDERED: NICOTINE 21 MG/24 HOURS TOPICAL PATCH ONE (13:23)
[2022-12-18] MEDS ORDERED: PRENATAL VITAMINS W/ FOLIC ACID TABLET (FP) PO ONE (13:23)
[2022-12-18] MEDS: NIFEdipine E.R. 30 MG TABLET PO SCH (13:27)
[2022-12-18] MEDS: chlordiazePOXIDE HCL 25 MG CAPSULE PO SCH ×2 (17:42→22:29)
[2022-12-18] MEDS ORDERED: MELATONIN 5 MG TABLETS PO SCH (22:00)
[2022-12-18] MEDS ORDERED: THIAMINE HCL 100 MG TABLET (FP) PO SCH (22:00)
[2022-12-19] MEDS: LISINOPRIL 20 MG TABLET PO SCH (05:59)
[2022-12-19] MEDS: chlordiazePOXIDE HCL 25 MG CAPSULE PO SCH (06:00)
[2022-12-19] MEDS: HYDROCHLOROTHIAZIDE 25 MG TABLET (FP) PO SCH (06:00)
[2022-12-19] MEDS: NIFEdipine E.R. 30 MG TABLET PO SCH (06:00)
[2022-12-19] MEDS: PANTOPRAZOLE 40 MG TABLET PO SCH (06:00)
[2022-12-19 09:08] VITALS: BP 138/84; PULSE 65; RESP 16; TEMP 97.1
[2022-12-19] MEDS ORDERED: ARIPiprazole 5 MG TABLET PO SCH (10:00)
[2022-12-19] MEDS ORDERED: PRENATAL VITAMINS W/ FOLIC ACID TABLET (FP) PO SCH (10:00)
[2022-12-19] MEDS ORDERED: FLUTICASONE PROP 0.05% 16 GM NASAL SPRAY NS SCH (10:00)
[2022-12-19] MEDS ORDERED: SERTRALINE HCL 50 MG TABLET (FP) PO SCH (10:00)
[2022-12-20] MEDS ORDERED: chlordiazePOXIDE HCL 25 MG CAPSULE PO SCH (05:00)
[2022-12-21] MEDS ORDERED: chlordiazePOXIDE HCL 10 MG CAPSULE PO SCH (05:00)
[2022-12-22] MEDS ORDERED: chlordiazePOXIDE HCL 10 MG CAPSULE PO SCH (05:00)
[2022-12-23] MEDS ORDERED: chlordiazePOXIDE HCL 10 MG CAPSULE PO ONE (05:00)
[2022-12-24] MEDS ORDERED: ERGOCALCIFEROL (VIT D2) 50,000 UNIT (1.25 MG) CAPSULE PO SCH (10:00)
== END 2022-12-19 09:45 | disposition left against medical advice (07) | DRG 770 ==
LOC: YASAS 10:36 → Y3N 12:35
PROVIDERS: ADMIT Allergy & Immunology; ATTEND Surgery
PROC: HZ2ZZZZ Detoxification Services for Substance Abuse Treatment (ICD-10-PCS; principal; 2022-12-18)
DX: F10.230 Alcohol dependence with withdrawal, uncomplicated (principal); F14.20 Cocaine dependence, uncomplicated; F12.20 Cannabis dependence, uncomplicated; F17.210 Nicotine dependence, cigarettes, uncomplicated; F19.282 Other psychoactive substance dependence with psychoactive substance-induced sleep disorder; F19.24 Other psychoactive substance dependence with psychoactive substance-induced mood disorder; F20.9 Schizophrenia, unspecified; D64.9 Anemia, unspecified; I10 Essential (primary) hypertension; M54.50 Low back pain, unspecified; G89.29 Other chronic pain
CPT/HCPCS: 87811; C9803-CS; U0003; U0005

== ENCOUNTER 2023-01-08 14:43 | Inpatient (IN) | payer OTHER ==
[2023-01-08] MEDS ORDERED: cloNIDine HCL 0.1 MG TABLET PO STA (15:35)
[2023-01-08 15:42] VITALS: BMI 30.4
[2023-01-08] MEDS ORDERED: cloNIDine HCL 0.1 MG TABLET ONE (15:52)
[2023-01-08] MEDS ORDERED: LOPERAMIDE HCL 2 MG CAPSULE PO PRN (20:15)
[2023-01-08] MEDS ORDERED: guaiFENesin 600 MG TABLET.ER (FP) PO PRN (20:15)
[2023-01-08] MEDS ORDERED: NICOTINE POLACRILEX 2 MG GUM BUC PRN (20:15)
[2023-01-08] MEDS ORDERED: BENZOCAINE/MENTHOL (CHLORASEPTIC ) LOZENGE MM PRN (20:15)
[2023-01-08] MEDS ORDERED: NICOTINE 10 MG CARTRIDGE (INHALER) IH PRN (20:15)
[2023-01-08] MEDS ORDERED: MAGNESIUM HYDROX 2400MG/30ML ORAL SUSPENSION 30 ML CUP PO PRN (20:15)
[2023-01-08] MEDS ORDERED: DICYCLOMINE HCL 10 MG CAPSULE PO PRN (20:15)
[2023-01-08] MEDS ORDERED: MELATONIN 5 MG TABLETS PO PRN (20:15)
[2023-01-08] MEDS ORDERED: P-EPHED 60MG/TRIPROLIDI 2.5MG TABLET PO PRN (20:15)
[2023-01-08] MEDS ORDERED: IBUPROFEN 400 MG TABLET (FP) PO PRN (20:15)
[2023-01-08] MEDS ORDERED: BENZONATATE 200 MG CAPSULE PO PRN (20:15)
[2023-01-08] MEDS ORDERED: POLYETHYLENE GLYCOL (HEALTHYLAX) 3350 17 GM PACKET PO PRN (20:15)
[2023-01-08] MEDS ORDERED: BISMUTH SUBSALICYLATE 524 MG/30 ML PO PRN (20:15)
[2023-01-08] MEDS: FLUTICASONE PROP 0.05% 16 GM NASAL SPRAY NS SCH (20:15)
[2023-01-08] MEDS ORDERED: ACETAMINOPHEN 325 MG TABLET (FP) PO PRN (20:15)
[2023-01-08] MEDS ORDERED: ONDANSETRON *ODT* 4 MG TABLET SL PRN (20:15)
[2023-01-08] MEDS ORDERED: MAG HYDROX/AL HYDROX/SIMETH 30 ML UNIT-DOSE CUP PO PRN (20:15)
[2023-01-08] MEDS ORDERED: chlordiazePOXIDE HCL 25 MG CAPSULE PO PRN (20:18)
[2023-01-08] MEDS ORDERED: GABAPENTIN 100 MG CAPSULE ONE (22:09)
[2023-01-08] MEDS: GABAPENTIN 300 MG CAPSULE PO SCH (22:15)
[2023-01-08] MEDS: THIAMINE HCL 100 MG TABLET (FP) PO SCH (22:15)
[2023-01-08] MEDS ORDERED: METOPROLOL TARTRATE 50 MG TABLET (FP) PO ONE (22:59)
[2023-01-08] MEDS: chlordiazePOXIDE HCL 25 MG CAPSULE PO SCH (23:23)
[2023-01-09] MEDS: GABAPENTIN 300 MG CAPSULE PO SCH ×3 (05:45→22:37)
[2023-01-09] MEDS: chlordiazePOXIDE HCL 25 MG CAPSULE PO SCH ×4 (05:45→22:38)
[2023-01-09] MEDS: HYDROCHLOROTHIAZIDE 25 MG TABLET (FP) PO SCH (05:47)
[2023-01-09] MEDS: LISINOPRIL 20 MG TABLET PO SCH (05:47)
[2023-01-09] MEDS: NIFEdipine E.R 60 MG TABLET PO SCH (06:08)
[2023-01-09] MEDS ORDERED: ERGOCALCIFEROL (VIT D2) 50,000 UNIT (1.25 MG) CAPSULE PO SCH (10:00)
[2023-01-09] MEDS: PRENATAL VITAMINS W/ FOLIC ACID TABLET (FP) PO SCH (10:43)
[2023-01-09] MEDS: PANTOPRAZOLE 20 MG TABLET PO SCH (10:44)
[2023-01-09] MEDS: FLUTICASONE PROP 0.05% 16 GM NASAL SPRAY NS SCH (10:45)
[2023-01-09] MEDS: hydrOXYzine PAMOATE 50 MG CAPSULE (FP) PO PRN (10:45)
[2023-01-09] MEDS: FERROUS GLUCONATE 324 MG TAB (FP) PO SCH (10:49)
[2023-01-09] MEDS: NICOTINE 14 MG/24 HOURS TOPICAL PATCH TD SCH (10:49)
[2023-01-09] MEDS: FOLIC ACID 1 MG TABLET (FP) PO SCH (10:49)
[2023-01-09 11:28] LABS: HEMATOCRIT 39.2 % (35.4-49); HEMOGLOBIN 12.5 GM/dL (11.7-16.9); MCH 25.5 pg (25.7-33.7); MCHC 31.9 g/dl (32.0-35.9); MEAN CELL VOLUME 79.9 fl (80-96); MEAN PLT VOLUME 9.6 fl (7.5-11.1); PLATELET COUNT 242 10^3/uL (134-434); RBC 4.91 M/mm3 (4.00-5.60); RDW 15.8 % (11.9-15.9); WHITE BLOOD COUNT 3.7 K/mm3 (4.0-10.0)
[2023-01-09 11:33] LABS: POTASSIUM 3.3 mmol/L (3.5-5.1)
[2023-01-09 11:42] LABS: BLOOD UREA NITROGEN 10.2 mg/dL (7-18)
[2023-01-09 11:43] LABS: CALCIUM 8.8 mg/dL (8.5-10.1)
[2023-01-09 11:44] LABS: ALBUMIN 3.1 g/dl (3.4-5.0)
[2023-01-09 11:46] LABS: CREATININE 1.1 mg/dL (0.55-1.3)
[2023-01-09 11:47] LABS: TOT PROT 6.2 g/dl (6.4-8.2)
[2023-01-09 11:48] LABS: BILIRUBIN,TOTAL 0.6 mg/dL (0.2-1)
[2023-01-09] MEDS ORDERED: NIFEdipine E.R 60 MG TABLET PO ONE (12:00)
[2023-01-09] MEDS: POTASSIUM CHLORIDE ORAL LIQUID 20 MEQ/15 ML PO SCH ×2 (13:50→22:37)
[2023-01-09] MEDS: THIAMINE HCL 100 MG TABLET (FP) PO SCH (22:40)
[2023-01-10] MEDS ORDERED: chlordiazePOXIDE HCL 25 MG CAPSULE PO SCH (05:00)
[2023-01-10] MEDS: chlordiazePOXIDE HCL 10 MG CAPSULE PO SCH ×4 (06:00→23:08)
[2023-01-10] MEDS: LISINOPRIL 20 MG TABLET PO SCH (06:49)
[2023-01-10] MEDS: GABAPENTIN 300 MG CAPSULE PO SCH ×3 (06:50→23:09)
[2023-01-10] MEDS: NIFEdipine E.R 60 MG TABLET PO SCH (06:51)
[2023-01-10] MEDS: HYDROCHLOROTHIAZIDE 25 MG TABLET (FP) PO SCH (07:36)
[2023-01-10] MEDS: hydrOXYzine PAMOATE 50 MG CAPSULE (FP) PO PRN (10:52)
[2023-01-10] MEDS: NICOTINE 14 MG/24 HOURS TOPICAL PATCH TD SCH (10:52)
[2023-01-10] MEDS: PRENATAL VITAMINS W/ FOLIC ACID TABLET (FP) PO SCH (10:52)
[2023-01-10] MEDS: PANTOPRAZOLE 20 MG TABLET PO SCH (10:52)
[2023-01-10] MEDS: FOLIC ACID 1 MG TABLET (FP) PO SCH (10:52)
[2023-01-10] MEDS: POTASSIUM CHLORIDE ORAL LIQUID 20 MEQ/15 ML PO SCH ×2 (10:54→23:09)
[2023-01-10] MEDS: FERROUS GLUCONATE 324 MG TAB (FP) PO SCH (10:54)
[2023-01-10] MEDS: FLUTICASONE PROP 0.05% 16 GM NASAL SPRAY NS SCH (10:54)
[2023-01-10] MEDS: THIAMINE HCL 100 MG TABLET (FP) PO SCH (23:09)
[2023-01-11] MEDS ORDERED: chlordiazePOXIDE HCL 10 MG CAPSULE PO PRN
[2023-01-11] MEDS ORDERED: MELATONIN 5 MG TABLETS PO ONE (03:00)
[2023-01-11] MEDS ORDERED: chlordiazePOXIDE HCL 10 MG CAPSULE PO SCH (05:00)
[2023-01-11] MEDS: GABAPENTIN 300 MG CAPSULE PO SCH ×2 (06:23→13:17)
[2023-01-11] MEDS: LISINOPRIL 20 MG TABLET PO SCH (06:23)
[2023-01-11] MEDS: HYDROCHLOROTHIAZIDE 25 MG TABLET (FP) PO SCH (06:31)
[2023-01-11] MEDS: NIFEdipine E.R 60 MG TABLET PO SCH (06:31)
[2023-01-11 09:57] VITALS: RESP 17
[2023-01-11] MEDS: hydrOXYzine PAMOATE 50 MG CAPSULE (FP) PO PRN (10:40)
[2023-01-11] MEDS: FOLIC ACID 1 MG TABLET (FP) PO SCH (10:40)
[2023-01-11] MEDS: PRENATAL VITAMINS W/ FOLIC ACID TABLET (FP) PO SCH (10:40)
[2023-01-11] MEDS: PANTOPRAZOLE 20 MG TABLET PO SCH (10:40)
[2023-01-11] MEDS: POTASSIUM CHLORIDE ORAL LIQUID 20 MEQ/15 ML PO SCH (10:41)
[2023-01-11] MEDS: FLUTICASONE PROP 0.05% 16 GM NASAL SPRAY NS SCH (10:41)
[2023-01-11] MEDS: NICOTINE 14 MG/24 HOURS TOPICAL PATCH TD SCH (10:41)
[2023-01-11] MEDS: FERROUS GLUCONATE 324 MG TAB (FP) PO SCH (10:41)
[2023-01-11 13:16] VITALS: BP 147/76; PULSE 57; TEMP 97.3
[2023-01-12] MEDS ORDERED: chlordiazePOXIDE HCL 10 MG CAPSULE PO ONE (05:00)
== END 2023-01-11 14:35 | disposition other institution (70) | DRG 774 ==
LOC: YASAS 14:43 → Y6N 22:05
PROVIDERS: ADMIT Allergy & Immunology; ATTEND Surgery
PROC: HZ2ZZZZ Detoxification Services for Substance Abuse Treatment (ICD-10-PCS; principal; 2023-01-08)
DX: F10.230 Alcohol dependence with withdrawal, uncomplicated (principal); F14.20 Cocaine dependence, uncomplicated; F12.20 Cannabis dependence, uncomplicated; F17.210 Nicotine dependence, cigarettes, uncomplicated; F31.9 Bipolar disorder, unspecified; E87.6 Hypokalemia; I10 Essential (primary) hypertension; R76.11 Nonspecific reaction to tuberculin skin test without active tuberculosis; Z98.84 Bariatric surgery status
CPT/HCPCS: 36415; 71046-TC-FY; 80053; 85027; 86780; 87635